=== PATIENT | female | born 1960 | race Caucasian/White ===

== ENCOUNTER 2024-09-09 09:46 | Outpatient (AMB) | payer OTHER, SELFPAY ==
--- NOTE | 2024-09-09 09:49 | MHC.PC.OV ---
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 Intake Note: New patient visit Early Intervention School Psychologist Required: No Allergies clarithromycin [From Biaxin] Allergy (Severe, Verified 09/09/24 09:54) Hives cat dander Allergy (Unknown, Verified 09/09/24 09:56) Unknown dog dander Allergy (Unknown, Verified 09/09/24 09:56) Unknown horse dander Allergy (Unknown, Verified 09/09/24 09:56) Unknown Medication List - Last Reconciled 09/09/24 by Eileen Lopes MD albuterol sulfate 90 mcg/actuation 2 puffs inhalation Q6H PRN fluticasone furoate-vilanterol (Breo Ellipta) inhalation hydrochlorothiazide 25 mg PO DAILY multivitamin 1 tab PO DAILY Tobacco use date assessed: 09/09/24 Dental Screening Dental Screen Date: 09/09/24 Did you have a dental visit in the last 12 months?: Yes Did you have a dental problem in the last 6 months where you did not have access to dental care?: No Was dental information given to patient?: Patient has dentist HPI HPI Comments History of Present Illness Details The patient is a 63 year old female with a past medical history of hypertension, asthma presenting to [facility]. Transfer [facility] CV: On hctz 25 daily. Denies chest pain, exertional dyspnea. Asthma: On Breo. Takes albuterol as needed Follows with ENT. History of torn carotid. Was following with Dr Alvarado. Had follow up MRArian Being referred to neurosurgery. Denies RUFF. MSK: History of calf pain, plantar fasciits. Sees podiatry Following on [facility] Follows with Dr Hawkins benefits consultant Mammo 2023. History of abnormal mammo with Colonoscopy 2022-5 year polyps. [facility] History of Shingles in June. Does plan on getting the vaccination ROS see HPI PHYSICAL EXAM: GENERAL: Alert and oriented x 3. NAD EYES: EOMI. Anicteric. HENT: Moist mucous membranes. No scleral icterus. No cervical lymphadenopathy. LUNGS: Clear to auscultation bilaterally. CARDIOVASCULAR: Regular rate and rhythm. No murmur. No JVD. ABDOMEN: Soft, non-tender +bs EXTREMITIES: No edema. Non-tender. SKIN: No rashes or lesions. Warm. NEUROLOGIC: No focal neurological deficits. CN II-XII grossly intact PSYCHIATRIC: Cooperative. Appropriate mood and affect [facility] Social History Housing: House Alcohol intake: current Patient Tobacco Use Status: Never used Tobacco e-Cigarette/Vaping Use: Never Used Second Hand Smoke Exposure: No service: No Current occupational status: employed Current occupation: med care manager Current occupational exposures/hazards: No Cognitive needs: No Hearing needs: No Vision needs: No Questionnaire AUDIT C Alcohol Use Questionnaire (AUDIT-C) 1. How often do you have a drink containing alcohol?: Monthly or less 2. How many drinks containing alcohol do you have on a typical day when you are drinking?: 1 or 2 3. How often do you have six or more drinks on one occasion?: Never Total Score: 1 Physical exam (Primary Care) Vital Signs: Last Vital Signs Temp 98.6 F 09/09/24 09:59 Pulse 83 09/09/24 09:59 Resp 14 09/09/24 09:59 BP 136/76 09/09/24 09:59 Pulse Ox 94 09/09/24 09:59 Oxygen Delivery Method Room Air 09/09/24 09:59 BMI result Body Mass Index 36.6 Tobacco/Smoking Status: Tobacco use Status Tobacco use date assessed 09/09/24 09/09/24 10:04 Patient Tobacco Use Status Never used Tobacco 09/09/24 10:04 e-Cigarette/Vaping Use Never Used 09/09/24 10:04 Coding Level of Care Code New Pt Level 4 (36577) Diagnoses Encounter to establish care Z76.89 Primary hypertension I10 Hypertension type: primary hypertension Moderate persistent asthma, unspecified whether complicated J45.40 Asthma severity: moderate Asthma persistence: persistent Asthma complication type: unspecified Screening for skin cancer Z12.83 Assessment & Plan Assessment & Plan (1) Encounter to establish care: Code(s): Z76.89 - Persons encountering health services in other specified circumstances Category: Medical (2) Hypertension: Code(s): I10 - Essential (primary) hypertension Category: Medical Qualifiers: Hypertension type: primary hypertension Qualified Code(s): I10 - Essential (primary) hypertension (3) Asthma: Code(s): J45.909 - Unspecified asthma, uncomplicated Category: Medical Qualifiers: Asthma severity: moderate Asthma persistence: persistent Asthma complication type: unspecified Qualified Code(s): J45.40 - Moderate persistent asthma, uncomplicated (4) Screening for skin cancer: Code(s): Z12.83 - Encounter for screening for malignant neoplasm of skin Category: Medical Plan 63 year old to establish care Past medical, surgical, social family history reviewed Asthma is well controlled HTN-controlled on current medications. Labs next visit Orders: Referrals Dermatology Referral Z12.83 - Encounter for screening for malignant neoplasm of skin Medications: New hydrochlorothiazide 25 mg PO DAILY 90 tabs 3RF Breo Ellipta 200-25 mcg/dose (fluticasone furoate-vilanterol) 1 inh inhalation DAILY 3 ea 3RF NS I10 - Essential (primary) hypertension, J45.909 - Unspecified asthma, uncomplicated albuterol sulfate 90 mcg/actuation 2 puffs inhalation Q6H PRN 8.5 grams 3RF shortness of breath or wheezing Breo Ellipta 200-25 mcg/dose (fluticasone furoate-vilanterol) 1 inh inhalation DAILY 3 ea 3RF NS I10 - Essential (primary) hypertension, J45.909 - Unspecified asthma, uncomplicated albuterol sulfate 90 mcg/actuation 2 puffs inhalation Q6H PRN 8.5 grams 3RF shortness of breath or wheezing hydrochlorothiazide 25 mg PO DAILY 90 tabs 3RF hydrochlorothiazide 25 mg PO DAILY 30 tabs 0RF albuterol sulfate 90 mcg/actuation 2 puffs inhalation Q6H PRN 8.5 grams 0RF shortness of breath or wheezing
[2024-09-09 09:59] VITALS: BP 136/76; PULSE 83; RESP 14; TEMP 37; O2SAT 94; BMI 36.6
--- OUTSIDE RECORDS SUMMARY | 2024-09-09 11:11 | XMS_ITS ---
Author Organization [facility] Address [address] [address] Care Team Providers Care Chief Safety Officer Name Role Phone RichardsAshley coyle Unavailable [phone] REASON FOR VISIT RX NOT AT PHARMACY Medications Medication SIG (Take, Route, Frequency, Duration) Notes Start Date End Date Status Tylenol with Codeine #3 300-30 MG 1 tablet as needed Orally every 6 hrs PRN for 30 days 07/28/2024 Active Encounters Encounter Location Date Provider Diagnosis [facility] [address] [place], [place] [address] [address] [address] 07/29/2024 Ashley Richards Plan Of Treatment Medication Medication Name Sig Start Date Stop Date Notes Tylenol with Codeine #3 300- 30 MG 1 tablet as needed Orally every 6 hrs PRN for 30 days 07/28/2024 Next Appt Details Provider Name:Ashley coyle, 06/02/2025 08:40:00 AM, [address] [place], [place] [address] [facility], [facility] [address], [place], [address], Progress Notes * JAYLEN RICHARDSB: [birth year] (63 yo F)Acc No.[id number]:07/29/2024 Patient:?BRITTON RICHARDS :1960???Age:63 Y???Sex:Female Address:[address] [place] [address], [place], [address] * Refills? Refill Tylenol with Codeine #3 Tablet, 300-30 MG, Orally, 24, 1 tablet as needed, every 6 hrs PRN, 30 days, Refills=0 * true * Date:? Generated for Porfirio calle/Gigi/Duarte on:?09/09/2024 11:11 AM EDT
--- OUTSIDE RECORDS SUMMARY | 2024-09-09 11:11 | XMS_ITS ---
Author Organization [facility] Address [address] [facility] [address] [place] [address] Care Team Providers Care Filament Welder Name Role Phone RichardsAshley coyle Unavailable [phone] REASON FOR VISIT New Refill Request Encounters Encounter Location Date Provider Diagnosis [facility] [address] [place] [address] [address] [place] [address] 06/11/2024 Ashley Richards Plan Of Treatment Next Appt Details Provider Name:Ashley Spencer Richelletrisha anthonyanival, 06/02/2025 08:40:00 AM, [address] [facility], [address], [place], [address], Progress Notes * JACQUELINE RICHARDSADOB: [birth year] (63 yo F)Acc No.[id number]:06/11/2024 Patient:?BRITTON RICHARDS :1960???Age:63 Y???Sex:Female Address:[address] [place] [address], [address] * true * Date:? Generated for Printi ng/Fajosseling/eTransmitting on:?09/09/2024 11:11 AM EDT
--- OUTSIDE RECORDS SUMMARY | 2024-09-09 11:11 | XMS_ITS ---
Author Organization [facility] Address [address] [facility] [place] [address] Care Team Providers Care Restaurant Inspector Name Role Phone Quynh Weiner Unavailable [phone] Allergies Allergen (clinical drug ingredient) Drug/Non Drug Allergy documented on EMR Reaction Allergy Type Onset Date Status Biaxin nausea and vomiting Drug Allergy Active Results Component Value Reference Range Notes X ray : Foot, right 3V Reviewed date:07/18/2024 02:32:31 PM Interpretation:See Examination above Performing Lab: Notes/Report: See Examination above REASON FOR VISIT Foot pain Medications Medication SIG (Take, Route, Frequency, Duration) Notes Start Date End Date Status Feldene 20 MG 1 capsule with food Orally Once a day for 30 day(s) 12/30/2019 Not-Taking Ammonium Lactate 12 % 1 application Externally Twice a day for 30 days Active Vitamin D Active Zinc Active Vitamin B Complex Ac tive Vitamin B12 Active Vitamin B6 Active Vitamin C Active Mirena Not-Taking Flovent HFA Active Biofreeze 10 % as directed Externally 07/18/2024 Active ProAir HFA Active hydroCHLOROthiazide 25 MG 1 tablet in th e morning Orally Once a day for 30 day(s) Active Feldene 20 MG 1 capsule with food Orally Once a day for 30 day(s) 07/31/2013 Not-Taking Social History Tobacco use other than smoking: Question Answer Notes Are you an other tobacco user? No Problems Problem Type SNOMED Code ICD Code Onset Dates Problem Status W/U Status Risk Notes Problem Mononeuropathy of lower limb (713924256) Neuritis of right foot (G57.91) Active confirmed Problem 9243380423 Hallux valgus of right foot (M20.11) Active confirmed Vital Signs Height 5ft 5 in in 07/18/2024 Weight 215 lbs 07/18/2024 BMI 35.77 kg/m2 07/18/2024 Blood pressure systolic 152 mm Hg 07/18/19 25 Blood pressure diastolic 96 mm Hg 025 Heart Rate 82 /min 07/18/2024 Encounters Encounter Location Date Provider Diagnosis [facility] [address] [address] 07/18/2024 Quynh Weiner Pain in right foot M79.671 ; Neuritis of right foot G57.91 ; Hallux valgus of right foot M20.11 and Bunion, right M21.611 Assessments Encounter Date Diagnosis (ICD Code) Assessment Notes Treatment Notes Treatment Clinical Notes Section Notes 07/18/2024 Pain in right foot (ICD-10 - M79.671) 07/18/2024 Neuritis of right foot (ICD-10 - G57.91) 07/18/2024 Hallux valgus of right foot (ICD-10 - M20.11) 07/18/2024 Bunion, right (ICD-10 - M21.611) Plan Of Treatment Medication Medication Name Sig Start Date Stop Date Notes Biofreeze 10 % as directed Externally 07/18/2024 Next Appt Details Follow Up: prn, Reason: Progress Notes * Moiz RICHARDSaDOB: [birth year] (63 yo F)Acc No.[id number]:07/18/2024 Progress Note Patient:?Olamide RICHARDS Provider:?Quynh Weiner DPM :1960???Age:63 Y???Sex:Female D ate:07/18/2024 Address:[address], [facility] Subjective: * Chief Complaints: * ???Foot pain * HPI: ???Foot Pain:?Nature:?burning , tingling, numbness.?Location:?great toe right.?Duration:?, several months.?Onset:?unknown.?Course:?worse.?Aggravated:?Any pressure going from open toes to closed toed shoes, Worse at night when in bed.?Treatments:?rest/alter normal daily activity, change in shoes.? * ROS:?General/Constitutional:?Nausea?denies.?Vomiting?denies.?Hunger Thirst?denies.?Loss appetite?denies.?Chills?denies, denies.?Fatigue?denies,.?Fever?denies.?Night Sweats?denies.?Unexplained weight loss?denies.?Ophthalmologic:?Blurred vision?denies, denies.?Red eye?denies, denies.?HEENTM:?Dentures?denies.?Dizziness?denies.?Glasses/contacts?admits.?Retinopathy?de nies.?Blurred/double vision?denies.?TMJ?denies.?Discharge/drainage?denies.?Implants?denies, denies.?Hard of hearing ?denies.?Difficulty chewing/swallowing/speaking?denies.?Nose bleeds?denies, denies.?Sore mouth?denies, denies.?Swollen glands?denies, denies.?Respiratory:?On Oxygen?denies, denies.?Pneumonia/pleurisy?denies.?Bronchitis?denies.?Emphysema?denies, denies.?Coughing?denies, denies.?Cough blood?denies, denies.?Shortness of breath?admits.?Wheezing?admits.?Cardiovascular:?Pacemaker?denies.?MVP?denies, denies.?WPW?denies, denies.?CHF?denies.?Heart attack?denies, denies.?Septal defect?denies, denies.?Rapid beat?denies, denies.?Chest pain ?denies, denies.?Atrial Fib.?denies, denies.?Murmur/Palpitations?denies.?Gastrointestinal:?Hemorrhoids?denies.?Stomach/Abdominal pain?denies.?Dark blood stool?denies, denies.?Irritable bowel ?denies, denies.?Constipation?denies, denies.?Diarrhea?denies, denies.?Vomiting?denies, denies.?Hematology:?Swelling?admits.?Bruising?denies.?Bleeding problem?denies.?Genitourinary:?Blood urine?denies, denies.?Frequent/Painfu/urination/bladder control?denies, denies.?Kidney stones?denies, denies.?Infection (UTI)?denies, denies.?Nephropathy?denies, denies.?Musculoskeletal:?Hammertoes?denies.?Bunions?denies.?Scoliosis/kyphosis?denies.?Muscle cramps / walking?denies.?Generalized aches and pains?admits.?Weakness?denies.?Integ.:?Kumar?denies.?Scars?denies.?Corns/calluses?admits.?Ingrown nails?admits.?Painful nails?denies.?Rashes?denies.?Neurologic:?Difficulty sleeping?denies.?Bipolar?denies.?Brain disorder?denies.?Balance trouble?denies.?Confusion?denies.?Fainting/blackouts?denies.?Headache?denies.?Tr emors?denies.? * Medical History:? * Surgical History:?elbow surg [place] 2007oral surgery 05/2024 * Hospitalization/Major Diagno stic Procedure:?[facility] for a 3 day stay for torn carotid 2010 * Family History:?Mother: aliv e, diabetes, arthritis, high blood pressure.?Father: .?Spouse: alive.? * Social History:?Tobacco Use:?Tobacco Use/Smoking?Are you a:: nonsmoker , Additional Findings: Tobacco Non-User: Current non-smoker.?Tobacco use other than smoking?Are you an other tobacco user??No ???Drugs/Alcohol:?Drugs?Have you used drugs other than those for medical reasons in the past 12 months??No ?Alcohol Screen?Did you have a drink containing alcohol in the past year?: Yes, How often did you have a drink containing alcohol in the past year?: Monthly or less (1 point), Points: 1, Interpretation: Negative.?Miscellaneous:?Caffeine: yes, 2-3 cups per day. ?Children: yes, 2. ?Exercise: yes, Beatrice,walking, bike riding. ?Marital status: . 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 * Medications:?TakinghydroCHLO ROthiazide 25 MG Tablet 1 tablet in the morning Orally Once a day ProAir HFA Flovent HFA Vitamin C Vitamin B6 Vitamin B12 Vitamin B Complex Zinc Vitamin D Ammonium Lactate 12 % Cream 1 application Externally Twice a day Taking hydroCHLOROthiazide 25 MG Tablet 1 tablet in the morning Orally Once a day Taking ProAir HFA Taking Flovent HFA Taking Vitamin C Taking Vitamin B6 Taking Vitamin B12 Taking Vitamin B Complex Taking Zinc Taking Vitamin D Taking Ammonium Lactate 12 % Cream 1 application Externally Twice a day Not-Taking/PRNMirena Feldene 20 MG Capsule 1 capsule with food Orally Once a day Feldene 20 MG Capsule 1 capsule with food Orally Once a day Medication List reviewed and reconciled with the patientNot-Taking/PRN Mirena Not-Taking/PRN Feldene 20 MG Capsule 1 capsule with food Orally Once a day Not-Taking/PRN Feldene 20 MG Capsule 1 capsule with food Orally Once a day Medication List reviewed and reconciled with the patient * Allergies:?Biaxin: nausea an d vomiting - Allergyyes[Allergies Verified] Objective: * Vitals:?Ht:5ft 5 in, Wt:215, BMI:35.77, Shoe size:10W, BP:152/96mm Hg, HR:82/min, Ht-cm: 165.1 cm, Wt-k.52 kg. * Examination: ???General Examination: ?GENERAL APPEARANCE:?Reveals a pleasant, alert, well nourished, well- developed, well hydrated individual, who demonstrates proper attention to hygiene/body habitus, and is in no acute distress, Pt serves as own historian for office visit today.?ORIENTED:?person, place, and time.?Neurological: ?SENSORY:?Neurological exam demonstrates, reduced light touch sensation, reduced sharp/dull pin prick discrimination, reduced vibration sensation, 5.07 monofilament test performed at plantar aspects of 5 varied sites per foot shows sensation, reduced medial hallux right, Pt relates, numbness, burning, tingling, Right.?TINEL'S COMPRESSION:?Positive, Saphenous nerve distribution, Right.?Neuroma Pain: ?PALPATION:?No interspace pain noted on palpation.?Orthopedic: ?MUSCLE STRENGTH:?5/5 all groups in a symmetrical fashion, B/L.?BUNION:?Medially prominent 1st MPJ, RIGHT, inflammation present, Lateral tracking 1st MPJ incompletely reducible.?DIGITAL DEFORMITIES:?Digital contracture, PIPJ, 2-5 B/L, incompl-reducible with WB, or to push-up test, no over, nor underlapping.?FOOTWEAR:?shoe gear properties exacerbate patients foot/toe deformity.?X-Rays - IMAGING REPORT: ?Clinical Indication(s):?Evaluate Biomechanical Deformity , Evaluate for Fracture.?Views:?3 views of Foot , AP , LAT , MO , RIGHT??Taken by trained?Podiatric Crew Chief (?SP ).?Findings:?normal bone and soft tissue density consistent for patients age and sex , dorsal degenerative changes of the tarsal joints.?HAV:?increased First Intermetatarsal angle and Hallux Abductus angle consistent with Bunion deformity noted, hypertrophy of the dorsal and medial 1st MTH WITH subchondral cyst(s), fibular sesamoid located in the IS, positive sesamoid hypertrophy.?Fracture:?Negative fractures identified.? * Physical Examination:?L2999 Supplies:?Insoles-pedag?#40.? Assessment: * Assessment: 1.?Pain in right foot - M79. 671???2.?Neuritis of right foot - G57.91 (Primary)???Specify :Acute problem, Complicated w/ Multiple Tx Options(4),Dx New problem, Prognosis Uncertain (4)???3.?Hallux valgus of right foot - M20.11???4.?Bunion, right - M21.611??? Plan: * Treatment: 2.?Hallux valgus of right fo ot? Start Biofreeze Cream, 10 %, as directed, Externally.?? * Procedure Codes:?68405 X-RAY EXAM OF RIGHT FOOT 3V, Modifiers: 26 , RT * Preventive Medicine:? ??Counseling:?Discussion:?-14: Office or other outpatient visit for the evaluation and management of an established patient, which required a medically appropriate history and/or examination and MODERATE level of DECISION MAKING for: 1 OR MORE CHRONIC PROBLEM(S) THATS WORSENING, 2 STABLE CHRONIC PROBLEMS, A NEWLY DIAGNOSED PROBLEM WITH UNCERTAIN PROGNOSIS, AN ACUTE COMPLICATED INJURY WITH MULTIPLE TREATMENT OPTIONS, OR AN ACUTE PROBLEM WITH ACCOMPANYING SYSTEMIC SYMPTOMS, THAT POSE(S) A MODERATE RISK OF MORBIDITY. THIS CONDITION MAY ALSO INCLUDE RX DRUG MANAGEMENT, OR A DECISON FOR MINOR SURGERY. The visit on the day of the encounter encompassed interpreting the data and educating the patient as to the nature of their condition, treatment options available according to their individual PMH, meds, allergies, and overall health/living conditions, as well as any potential risks or complications that may occur from a failure to adhere to, and participate in, the recommended course of therapy. The discussion included a complete verbal, and/or written explanation of the examination results, any x-rays taken, the proposed diagnosis, and outline of the treatment plan. A schedule for future care needs was also explained. The patient verbalized an understanding of the instructions at this time and agreed to be an active participant in their treatment. If the patient should think of any questions or concerns after the visit, I have encouraged the patient to call the office.?BioMech.:?I discussed the Pts foot biomechanics with them and how it relates to their problem, Pt is fitted for an OC orthotic to help address their issues., Discussed and reviewed the X-rays with the patient. We discussed how the findings relate to the patients symptoms/complaints. Answered any and all questions., Recommended Topical analgesics including biofreeze/aspercream/Voltaren gel.?Discussion for Bunion sx:?Several different types of Bunion surgeries were discussed with the patient, including, but not limited to: Modified Weinstein bone removal and soft tissue release/realignment, James osteotomy with soft tissue release/realignment and internal fixation, Shaft v Base wedge osteotomies with internal fixation, and Lapidus joint fusion procedures with internal fixation. We discussed the risks of having surgery (described below) vs not having surgery (persistent pain, deformity, risk for skin ulceration/infection, loss of toe) as well as the potential surgical complications including, but not limited to: pain, swelling, bleeding, scarring, numbness, infection, delayed/non healing, floppy/unstable/shorthened toe, recurrence, failure of the procedure, overcorrection leading to plantarflexed/downward/upward positioned toe, recurrence, need for further surgery, as well as the possibility for loss of the toe itself. We discussed the use of IV/Local regional anesthesia, and the usual post-op course for healing. No guarentees were given. The patient verbally indicated a full understanding of the above conversation, and any other of their questions were answered to their satisfaction, Recomm, rest, ice, proper shoegear, padding, orthotics, anti-inflammatories or tylenol as tolerated, topical analgesics, cortisone injections, Discussed and reviewed the X-rays with the patient. We discussed how the findings relate to the patients symptoms/complaints. Answered any and all questions..?Neuritis/Neuropathy:?The patient was counseled on the diagnosis, possible etiologies (including mechanical stress, injury, entrapment, chemotherapy, diabetes, vertebral disk herniation if hx), treatment options, and importance for adherence to recommendations in order to address the patients Neuritis/Neuropathy. The advantages and disadvantages re: Accomidative mechanical support/offloading, Topical vs PO analgesics including aspercream/Voltaren gel/Lidoderm patches/Neurontin/Lyrica along with their potential side effects were discussed with the patient to their satisfaction. Also discussed the use of therapeutic injectable cortisone if needed. Surgical treatment, if considered an option, was discussed as well. If surgery is warranted, we discussed the potential successful outcomes as well as the possible complications such as failure, painful scar, permanent tingling/numbness/neuralgea/or intractable pain. Patient questions re: medication use, dosage, and possible side effects and drug interactions were reviewed and the answers to each understood. If the condition worsens, the patient was instructed to contact the office for an appointment. The patient verbally confirmed a full understanding of the above, Recommended Topical analgesics including aspercream/Voltaren gel/Lidoderm patches.? * Follow Up:?prn * Images: * Sign off status: Completed true * Provider:?Quynh Weiner DPM Date:?2024 Generated for Porfirio calle/Gigi/Reneitting on:?09/09/2024 11:11 AM EDT History and Physical Notes * HPI (History of Present Illness) Category Sub-Category Detail Notes Category Not es Foot Pain Nature: burning , tingling, numbness Location: great toe right Duration: , several months Onset: unknown Course: worse Aggravated: Any pressure going f rom open toes to closed toed shoes, Worse at night when in bed Treatments: rest/alter normal da val activity, change in shoes Physical Examination Category Sub-Category Detail Notes Section Note s L2999 Supplies Insoles-pedag #40 Examination Category Sub-Category Detail Notes Category Not es Neuroma Pain PALPATION: No interspace pain noted on palpation Neurological SENSORY: Neurological exa m demonstrates, reduced light touch sensation, reduced sharp/dull pin prick discrimination, reduced vibration sensation, 5.07 monofilament test performed at plantar aspects of 5 varied sites per foot shows sensation, reduced medial hallux right, Pt relates, numbness, burning, tingling, Right TINEL'S COMPRESSION: Positive, Saphenous nerve distribution, Right Orthopedic BUNION: Medially promine nt 1st MPJ, RIGHT, inflammation present, Lateral tracking 1st MPJ incompletely reducible FOOTWEAR EVALUATION: shoe gear propertie s exacerbate patients foot/toe deformity DIGITAL DEFORMITIES: Digital contracture , PIPJ, 2-5 B/L, incompl-reducible with WB, or to push-up test, no over, nor underlapping MUSCLE STRENGTH: 5/5 all groups in a symmetrical fashion, B/L General Examination GENERAL APPEARANCE: Reveals a pleasant, alert, well nourished, well-developed, well hydrated individual, who demonstrates proper attention to hygiene/body habitus, and is in no acute distress, Pt serves as own historian for office visit today ORIENTED: person, place, and t yolis X-Rays - IMAGING REPORT Findings: normal b one and soft tissue density consistent for patients age and sex , dorsal degenerative changes of the tarsal joints Fracture: Negative fractures i dentified HAV: increased First Inte rmetatarsal angle and Hallux Abductus angle consistent with Bunion deformity noted, hypertrophy of the dorsal and medial 1st MTH WITH subchondral cyst(s), fibular sesamoid located in the IS, positive sesamoid hypertrophy Views: 3 views of Foot , AP , LAT , MO , RIGHT Taken by trained Podiatric Crew Chief ( SP ) Clinical Indication(s): Evaluate Biomech anical Deformity , Evaluate for Fracture
--- OUTSIDE RECORDS SUMMARY | 2024-09-09 11:11 | XMS_ITS | Patient Health Record ---
Author Organization [facility] Address [address] [place] [address] Care Team Providers Care Decontaminator Name Role Phone Quynh Weiner Unavailable [phone] Allergies Allergen (clinical drug ingredient) Drug/Non Drug Allergy documented on EMR Reaction Allergy Type Onset Date Status Biaxin nausea and vomiting Drug Allergy Active Results Component Value Reference Range Notes X ray : Foot, right 3V Reviewed date:07/18/2024 02:32:31 PM Interpretation:See Examination above Performing Lab: Notes/Report: See Examination above Reason For Referral No Information Medications Medication SIG (Take, Route, Frequency, Duration) Notes Start Date End Date Status Biofreeze 10 % as directed Externally 07/18/2024 [...] C Active Mirena Not-Taking Flovent HFA Active Feldene 20 MG 1 capsule with food Orally Once a day for 30 day(s) 07/31/2013 Not-Taking Social History Tobacco use other than smoking: Question Answer Notes Are you an other tobacco user? No Problems Problem Type SNOMED Code ICD Code Onset Dates Problem Status W/U Status Risk Notes Problem [id number] Hallux valgus of right foot (M20.11) Active confirmed Problem Mononeuropathy of lower limb (900043314) Neuritis of right foot (G57.91) Active confirmed Vital Signs Heart Rate 82 /min 07/18/2024 Blood pressure diastolic 96 mm Hg 07/18/2024 Height 5ft 5 in in 07/18/2024 Blood pressure systolic 152 mm Hg 07/18/2024 Weight 215 lbs 07/18/2024 BMI 35.77 kg/m2 07/18/2024 [facility]counters [facility] [address] [facility] Quynh Black Pain in right foot M79.671 ; Neuritis of right foot G57.91 ; Hallux valgus of right foot M20.11 and Bunion, right M21.[address] [address] 07/18/2024 Quynh Black [address] [address] 07/18/2024 Quynh Black Assessments Encounter Date Diagnosis (ICD Code) Assessment Notes Treatment Notes Treatment Clinical Notes Section Notes 07/18/2024 Pain in right foot (ICD-10 - M79.671) 07/18/2024 Neuritis of right foot (ICD-10 - G57.91) 07/18/2024 Hallux valgus of right foot (ICD-10 - M20.11) 07/18/2024 Bunion, right (ICD-10 - M21.611) Plan Of Treatment Pending Test Test Name Order Date X ray : Foot, right 3V 07/31/2013 01000,[id number] TENDON SHEATH/LIGAMENT 1 [id number] TENDON SHEATH/LIGAMENT 0 06/30/2020 83226,[id number] TENDON SHEATH/LIGAMENT 0 11/14/2022 Insurance Providers Payer Name Payer Address Payer Phone Subscriber Number Group Number Insured Name Patient Relationship to Insured Coverage Start Date Coverage End Date Lesly Arriaza [id number] NOAH Aquino [phone] [id number] Olamide Jeffrey Self - patient is the insured Medical (General) History Medical History History ICD Code asthma Broken bones High blood pressure Sciatica Chicken pox Joint implants/screws Zuni palsy Surgical History Surgery Date(Month/Year) elbow surgery 2006 oral surgery 05/2024 Hospitalization History Reason Date(Month/Year) [facility] for a 3 day stay for torn carotid 20 11
--- OUTSIDE RECORDS SUMMARY | 2024-09-09 11:12 | XMS_ITS | Data Portability ---
Author Organization [facility], Allergy Address [address] [facility] [address] [place] [address] Assessment Encounter Date Assessment Date Assessment LastModified by Organization Details LastModified Time 07/14/2024 07/14/2024 63 year old female initially seen by Dr. Alvarado in January 2023 for loss of taste and smell associated with long Covid. CT sinus was ordered which was negative for significant sinus disease. There was enlargement of sella turcica and possibility of pituitary micro or macroadenoma. As a result Dr. 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 Additionally there was possibly an associated arachnoid cyst. MRI also showed a 0.5 cm dural based enhancing nodule likely reflecting small meningioma. I have issued her a referral to neurosurgery. [email or web address] Not available 07/14/2024 10:28:21 Plan of Treatment Reminders Order Date Submit Date Provider Last Modified By Organization Details Last Modified Time Details Appointments None recorded. Lab None recorded. Referral neurologic al surgeon referral - partially empty sella on MRI brain 04/17/232024 025 [facility] Neurosurgery [facility], [address] [place] [address] [place], [address], 14:05:52 Procedures None recorded. Surgeries None recorded. Imaging None recorded. Medication Orders None recorded. Patient TargetsNo targets recorded. Patient InstructionsNo instructions recorded. 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 Medical Equipment None Reported. Allergies Allergen ID Allergen Name Allergen Category Reaction Reaction Severity Criticality Documentation Date Start Date Code Code System Note Provider Name and Address Organization Details Recorded Time 18642 Biaxin medicatio n itching Not available Not available 10/09/202368990 9 RxNorm React ion: Itch; Not Available [facility] 4 00:58:39 Medications Name Sig Start Date Stop Date Status Note LastModified by Organization Details LastModified Time doxycyclin e hyclate 100 mg capsule TAKE 1 CAPSULE BY MOUTH DAILY UNTIL ALL TAKEN active Not Available Not Available No t Available Multiple Vitamins tablet active Medication ID: [id number] Osbaldo nd Name: Multiple Vitamins S end Method: E-Prescrib ed Subs Allowed: subs OK Medicat ionGeneric Name: Multiple Vitamins Not Available Not Available Not Available hydrochlor othiazide 25 mg tablet active Medication ID: [id number] Osbaldo nd Name: hydrochlor othiazide Send Method: E-Prescrib ed Subs Allowed: subs OK Medicat ionGeneric Name: hydrochlor othiazide Not Available Not Available Not Available ibuprofen 600 mg tablet TAKE 1 TABLET BY MOUTH EVERY 6 HOURS NEEDED FOR PAIN active Not Available Not Available No t Available albuterol active Medication ID: [id number] Osbaldo nd Name: Albuterol Send Method: E-Prescrib ed Subs Allowed: subs OK Medicat ionGeneric Name: Albuterol Not Available Not Available Not Available Breo Ellipta active Medication ID: [id number] Osbaldo nd Name: Breo Ellipta Se nd Method: E-Prescrib ed Subs Allowed: subs OK Medicat ionGeneric Name: Breo Ellipta Not Available Not Available Not Available Vitals Date Recorded Body weight Body mass index (BMI) Body height Provider Name and Address Organization Details Last Updated DateTime 07/14/2024 73058.36 g 35.8 kg/m2 165.1 cm Genoveva Negrete [place] - [facility] 07/14/2024 10:12:23 Social History None recorded. Functional Status None recorded. Mental Status None recorded. Family History Nothing Reported. Medical History No medical history recorded. Gynecological HistoryNo gynecological history recorded. 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 03665006 D44.3 Loss of se nse of smell 37991443 R43.0 Health Concerns Section Related Observation LastModified by Organization Detai ls LastModified Time None Recorded Concern Status LastModified by Organization Details LastModified Time None Recorded Advance Directives Directive None Recorded Payers Encounter Date Sequence Insurance Name Policy Number Policy Marie Covered Member ID Marie Member ID Guarantor Name 07/14/2024 1 [facility] [id number] Olamide Hawkins [id number] Olamide Hawkins Notes Date Note Type Note Provider Name and Address Organization Details Recorded Time 07/14/2024 text/html 63 year old fema le patient of Dr. Alvarado seen back in January 2023 for loss of taste and smell associated with long Covid. CT sinus was ordered which was negative for significant sinus disease. There was enlargement of sella turcica and possibility of pituitary micro or macroadenoma. As a result Dr. 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 Additionally there was possibly an associated arachnoid cyst. MRI also showed a 0.5 cm dural based enhancing nodule likely reflecting small meningioma. Patient was issued referral to neurology but never received an appointment. She follows up today requesting new referral. She currently does not have a PCP. Reviewed that these findings are likely unrelated to her loss of sense and smell from Covid. JACE FRAGOSO MD [address] [place] [address], [id number], [facility] - [facility] 07/14/2024 12:33:30 OBGyn Episode No OBEpisode recorded.
--- OUTSIDE RECORDS SUMMARY | 2024-09-09 11:12 | XMS_ITS ---
Author Organization [facility] Address [address] [place] [address] Care Team Providers Care Roll Mechanic Name Role Phone Husam Quynhanne Yun [phone] REASON FOR VISIT buy pedag size 40 Encounters Encounter Location Date Provider Diagnosis [address] [address] 07/18/2024 Quynh Weiner Plan Of Treatment No Information Progress Notes * Yesenia RICHARDSB: 962 (63 yo F)Acc No.[id number]:07/18/2024 Patient:?RICHARDS Olamide :1960???Age:63 Y???Sex:Female Address:[address], [place], [address] * true * Date:? Generated for Printi ng/Fajosseling/eTransmitting on:?09/09/2024 11:12 AM EDT
--- OUTSIDE RECORDS SUMMARY | 2024-09-09 11:12 | XMS_ITS | Patient Health Record ---
Author Organization [facility] Address [address] [place] [address] Care Team Providers Care Scrap Drop Crane Operator Name Role Phone Ashley Richards Unavailable [phone] Allergies Allergen (clinical drug ingredient) Drug/Non Drug Allergy documented on EMR Reaction Allergy Type Onset Date Status BIAXIN Unknown Drug Allergy Active Results Component Value Reference Range Notes Urinalysis Reviewed date:05/27/2024 11:03:27 AM Interpretation: Performing Lab: Notes/Report: PH 5.0 PROTEIN tr GLUCOSE neg BLOOD large Reason For Referral No Information Medications Medication SIG (Take, Route, Frequency, Duration) Notes Start Date End Date Status Mirena (52 MG) inserted 11/2017 Active hydroCHLOROthiazide 25 MG 1 tablet Orall y Twice a day Active Breo Ellipta 100-25 MCG/INH 1 puff Inhalation Once a day Active Multi-Vitamin Daily - 1 tablet Orally Once a day Active Biotin 1000 MCG 1 tablet Orally Once a day Active Zinc 100 MG 1 tablet Orally Once a day Active Vitamin B12 100 MCG Orally Active ProAir HFA 108 (90 Base) MCG/ACT 2 puffs as needed Inhalation Active Glucosamine 500 MG 1 capsule with a meal Orally Once a day Active Tylenol with Codeine #3 300-30 MG 1 tablet as needed Orally every 6 hrs PRN for 30 days 07/28/2024 Active Social History Tobacco Use: Social History Observation Description Date Details (start date - stop date) Never Smoker NA - NA Tobacco Use/Smoking Question Answer Notes Are you a nonsmoker Alcohol Screen (Audit-C) Question Answer Notes Did you have a drink contain ing alcohol in the past year? Yes How often did you have a dri nk containing alcohol in the past year? Monthly or less (1 point) How many drinks did you have on a typical day when you were drinking in the past year? 1 or 2 drinks (0 point) Points 1 Interpretation Negative Problems Problem Type SNOMED Code ICD Code Onset Dates Problem Status W/U Status Risk Notes Problem Excessive and frequent menstruation (618187224) Excessive and frequent menstruation with regular cycle (N92.0) Active confirmed Problem Menopause (009538668) Menopausal and female climacteric states (N95.1) Active confirmed Problem Surveillance of intrauterine device contraception (118972356) Encounter for routine checking of intrauterine contraceptive device (Z30.431) Active confirmed Problem Diverticulitis of colon (319577907) Diverticulitis of intestine, part unspecified, without perforation or abscess without bleeding (K57.92) Active confirmed Problem Irregular Menstruation (88550193) Other specified irregular menstruation (N92.5) Active confirmed Problem Fatigue (68893524) Other fatigue (R53.83) Active confirmed Problem Menopause (370332059) Menopausal and female climacteric states (N95.1) Active confirmed Problem Abnormal vaginal bleeding (136703754) Other disorder of menstruation and other abnormal bleeding from female genital tract (626.8) Active confirmed Major Vital Signs Temperature 98.2 degrees Fahrenheit 05/27/2024 Blood pressure diastolic 84 mm Hg 05/27/2024 Height 65.75 in 05/27/2024 Blood pressure systolic 128 mm Hg 05/27/2024 Weight 217 lbs 05/27/2024 BMI 35.29 kg/m2 05/27/2024 Encounters Encounter Location Date Provider Diagnosis [facility] [address] [place] [address] 12/04/2023 Ashley Richards Other signs and symptoms in breast N64.59 and Family history of malignant neoplasm of breast Z80.3 [facility] [address] [address] [facility] [address] [place] [address] 05/27/2024 Ashley Richards Encounter for gynecological examination (general) (routine) without abnormal findings Z01.419 ; Encounter for screening mammogram for malignant neoplasm of breast Z12.31 and Encounter for removal of intrauterine contraceptive device Z30.432 [facility] [place] [address] [place] [address] 05/30/2024 Ashley Richards [facility] [address] [place] [address] 07/24/2024 Ashley Richards [facility] [address] [place] [address] 07/29/2024 Ashley Richards [facility] [address] [place] [address] 06/11/2024 Ashley Richards Assessments Encounter Date Diagnosis (ICD Code) Assessment Notes Treatment Notes Treatment Clinical Notes Section Notes 12/04/2023 Other signs and symptoms in breast (ICD-10 - N64.59) DISCUSSED FINDINGS AND NEED FOR FURTHER EVALUATION. ORDERED DIAGNOSTIC MAMMOGRAM AND RIGHT BREAST ULTRASOUND. WILL CALL HER WITH RESULTS. 05/27/2024 Encounter for gynecological examination (general) (routine) without abnormal findings (ICD-10 - Z01.419) NO PAP TEST, DUE IN 2024. 05/27/2024 Encounter for screening mammogram for malignant neoplasm of breast (ICD-10 - Z12.31) REGULAR MAMMOGRAMS AND SBE'S WERE RECOMMENDED. 12/04/2023 Family history of malignant neoplasm of breast (ICD-10 - Z80.3) DISCUSSED HER FAMILY HX OF BREAST CA AND INCREASED RISK OF BREAST CA. QUESTIONNAIRE TO ASSESS BREAST CA RISK WAS GIVEN. IF 20% OR MORE, MAY NEED ANOTHER MMODALITY LIKE BREAST US OR MRI TO ASSESS BREASTS. 05/27/2024 Encounter for removal of intrauterine contraceptive device (ICD-10 - Z30.432) DISCUSSED MIRENA IUD AND POSTMENOPAUSE. PAT DECIDED TO HAVE IUD REMOVED. IT IS EXPIRING IN A YEAR. Plan Of Treatment Pending Test Test Name Order Date MAMMOGRAM, SCREENING 04/14/2015 MAMMOGRAM, SCREENING 05/23/2022 MAMMOGRAM, SCREENING 05/23/2023 MAMMOGRAM, SCREENING 05/27/2024 Urinalysis 05/17/2020 Urinalysis 05/18/2021 25OH VITAMIN D 05/12/2019 25OH VITAMIN D 05/23/2023 COMPLETE BLOOD COUNT 05/23/2023 COMPLETE URINALYSIS 05/18/2021 COMPLETE URINALYSIS 10/01/2017 COMPLETE URINALYSIS 04/14/2015 COMPLETE URINALYSIS 04/14/2016 COMPLETE URINALYSIS 05/12/2019 COMPLETE URINALYSIS 05/17/2020 COMPREHENSIVE METABOLIC PANEL 05/23/2023 ESTRADIOL 03/08/2021 ESTRADIOL 05/12/2019 FSH 05/12/2019 HEMOGLOBIN A1C 05/23/2023 LH 05/12/2019 LIPID PANEL-B 05/23/2023 TSH 05/23/2023 URINE CULTURE 10/01/2017 URINE CULTURE 05/12/2019 URINE CULTURE 04/14/2016 URINE CULTURE 05/17/2020 URINE CULTURE 05/18/2021 MM Digital Mammo Screening 05/23/2022 MM Digital Mammo Screening 05/18/2021 MM Digital Mammo Screening 05/12/2019 MM Digital Mammo Screening 05/17/2020 MM Digital Mammo Screening 05/27/2024 MM Digital Mammo Screening 05/23/2023 Right Breast Ultrasound 12/04/2023 MM Digital Diagnostic Mammogram, Right 0 12/04/2023 Next Appt Details Provider Name:Ashley coyle, 06/02/2025 08:40:00 AM, [address] [facility], [address], [place], [address], Insurance Providers Payer Name Payer Address Payer Phone Subscriber Number Group Number Insured Name Patient Relationship to Insured Coverage Start Date Coverage End Date [facility] [address] [place] [address] [id number] JESISHAWNAMASONTabatha BRITTON Garcia Self - patient is the insured Medical (General) History Medical History History ICD Code Other specified abnormal uterine and vag inal bleeding N93.8 Polyp of cervix uteri N84.1 Other asthma J45.998 Carotid Artery Hematuria, unspecified R31.9 Excessive and frequent menstruation with regular cycle N92.0 Other specified irregular menstruation N 92.5 Other benign neoplasm of skin of scalp a nd neck D23.4 Leiomyoma of uterus, unspecified D25.9 Menopausal and female climacteric states N95.1 Diverticulitis of intestine, part unspecified, without perforation or abscess without bleeding K57.92 Deviated nasal septum J34.2 Other fatigue R53.83 Surgical History Surgery Date(Month/Year) x 2 Disection of Carotid Artery Fractured Left Elbow Repair Oral Surgery 2018 Hospitalization History Reason Date(Month/Year) See Surgical Hx
--- OUTSIDE RECORDS SUMMARY | 2024-09-09 11:12 | XMS_ITS ---
Author Organization [facility] Address [address] [address] Care Team Providers Care Ob Gyn Name Role Phone Ashlye Richards Unavailable [phone] REASON FOR VISIT COUPLE OF QUICK QUESTIONS Medications Medication SIG (Take, Route, Frequency, Duration) Notes Start Date End Date Status Tylenol with Codeine #3 300-30 MG 1 tablet as needed Orally every 6 hrs PRN for 30 days 07/28/2024 Active Encounters Encounter Location Date Provider Diagnosis [facility] [address] [address] 07/24/2024 Ashley Richards Plan Of Treatment Medication Medication Name Sig Start Date Stop Date Notes Tylenol with Codeine #3 300- 30 MG 1 tablet as needed Orally every 6 hrs PRN for 30 days 07/28/2024 Next Appt Details Provider Name:Ashley coyle, 06/02/2025 08:40:00 [facility] [place] [address], [place], [address], Progress Notes * JAYLEN RICHARDSB: 9[birth year] (63 yo F)Acc No.[id number]:07/24/2024 Patient:?BRITTON RICHARDS :1960???Age:63 Y???Sex:Female Address:[address] [place] [address], [place], [address] * Refills? Start Tylenol with Codeine #3 Tablet, 300-30 MG, Orally, 24, 1 tablet as needed, every 6 hrs PRN, 30 days, Refills=0 * true * Date:? Generated for Porfirio calle/Gigi/Duarte on:?09/09/2024 11:12 AM EDT
--- OUTSIDE RECORDS SUMMARY | 2024-09-09 11:12 | XMS_ITS ---
Author Organization [facility] Address [address] [place] [address] Care Team Providers Care Dairy Inspector Name Role Phone Alexandria Weineranne Yun [phone] REASON FOR VISIT buy nail greenlandic light pink Encounters Encounter Location Date Provider Diagnosis [address] [address] 07/18/2024 Quynh Weiner Plan Of Treatment No Information Progress Notes * Yesenia RICHARDSB: 962 (63 yo F)Acc No.[id number]:07/18/2024 Patient:?RICHARDS Olamide :1960???Age:63 Y???Sex:Female Address:[address], [place], [address] * true * Date:? Generated for Printi ng/Fajosseling/eTransmitting on:?09/09/2024 11:11 AM EDT
== END 2024-09-09 10:26 | disposition home or self-care (01) ==
LOC: HO.HMCFM 09:47
PROVIDERS: PCP Internal Medicine; Visit Provider Internal Medicine
DX: Z76.89 Persons encountering health services in other specified circumstances (principal); I10 Essential (primary) hypertension; J45.40 Moderate persistent asthma, uncomplicated; Z12.83 Encounter for screening for malignant neoplasm of skin

== ENCOUNTER 2024-11-17 14:43 | Outpatient (AMB) | payer OTHER, SELFPAY ==
--- NOTE | 2024-11-17 15:04 | MHC.PC.OV ---
Vital Signs 11/17/24 15:11 Weight 222 lb 6 oz BP 128/82 Blood Pressure Location Lt brachial Position Sitting Respiration 16 Pulse 79 Pulse Source Pulse Oximeter Temp 98.4 F Temp Source Oral Pulse Oximetry (%) 97 Oxygen Delivery Method Room Air Intake Visit Reasons: pneumonia / spot on L lung Intake Note: Pneumonian 10/13/2024. Still having shortness of breath and tightness. Using inhaler more frequently then before. Set Up Operator Tool Required: No Allergies clarithromycin (From Biaxin) Allergy (Severe, Verified 11/17/24 15:05) Hives cat dander Allergy (Unknown, Verified 11/17/24 15:05) Unknown dog dander Allergy (Unknown, Verified 11/17/24 15:05) Unknown horse dander Allergy (Unknown, Verified 11/17/24 15:05) Unknown Tobacco use date assessed: 11/17/24 Dental Screening Dental Screen Date: 09/09/24 HPI HPI Comments History of Present Illness Details The patient is a 64 year old female with a past medical history of hypertension, asthma presenting for follow up Recent urgent care for cough. Had CXR, read by clinician with concern for LLL infiltrate. Radiologist overread, no pneumonia. 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 Patient received and completed a course of doxycycline. She continues to feel shortness of breath and have intermittent wheezing. CV: On hctz 25 daily. Denies chest pain, exertional dyspnea. Asthma: On Breo. Takes albuterol as needed Follows with ENT. History of torn carotid. Was following with Dr Alvarado. Had follow up MR. Being referred to neurosurgery. Denies RUFF. MSK: History of calf pain, plantar fasciits. Sees podiatry Following on [facility] Follows with Dr Hawkins deposition operator Mammo 2023. History of abnormal mammo with Colonoscopy 2022-5 year polyps. [facility] History of Shingles in June. Does plan on getting the vaccination ROS see HPI PHYSICAL EXAM: GENERAL: Alert and oriented x 3. NAD EYES: EOMI. Anicteric. HENT: Moist mucous membranes. No scleral icterus. No cervical lymphadenopathy. LUNGS: Poor air entry b/l. right posterior rhonci CARDIOVASCULAR: Regular rate and rhythm. No murmur. No JVD. ABDOMEN: Soft, non-tender +bs EXTREMITIES: No edema. Non-tender. SKIN: No rashes or lesions. Warm. NEUROLOGIC: No focal neurological deficits. CN II-XII grossly intact PSYCHIATRIC: Cooperative. Appropriate mood and affect [facility] Social History Housing: House Alcohol intake: current Patient Tobacco Use Status: Never used Tobacco e-Cigarette/Vaping Use: Never Used Second Hand Smoke Exposure: No Use of substances other than those prescribed or required for medical reasons: No service: No Current occupational status: employed Current occupation: accounting manager assistant controller Current occupational exposures/hazards: No Cognitive needs: No Hearing needs: No Vision needs: No Questionnaire Thrive Questionnaire Date Thrive assessed: 09/09/24 I am a: Patient What is your living situation today?: I have a steady place to live Within the past 12 months, did the food you bought not last and you didn't have the money to get more?: Never true Within the past 12 months, did you worry whether your food would run out before you got money to buy more?: Never true Do you have trouble paying for medicines?: I choose not to answer this question Do you have trouble getting transportation to medical appointments?: No Do you have trouble paying your heating and electricity bill?: I choose not to answer this question Do you have trouble taking care of your child, family member or friend?: I choose not to answer this question Do you have trouble with day-to-day activities such as bathing, preparing meals, shopping, managing finances, etc.?: No Are you currently unemployed and looking for a job?: No Are you interested in more education?: No Please select the resources that you would like help with: None Currently or been in a relationship where the following occur: No concerns reported THRIVE Score: 0 AUDIT C Alcohol Use Questionnaire (AUDIT-C) 1. How often do you have a drink containing alcohol?: Never 3. How often do you have six or more drinks on one occasion?: Never Total Score: 0 ACT Questionnaire In the past 4 weeks, how much of the time did your asthma keep you from getting as much done at work, school or at home?: None of the time (while using inhaler ) During the past 4 weeks, how often have you had shortness of breath?: More than once a day (couple times a day) During the past 4 weeks, how often did your asthma symptoms wake you up at night or earlier than usual in the morning?: Not at all (takes more time getting asleep) During the past 4 weeks, how often have you had to use your rescue inhaler or nebulizer medication?: More than 3 times per day (2-3 times a day) How would you rate your asthma control during the past 4 weeks?: Poorly controlled ACT Interpretation: Positive Score: 14 Physical exam (Primary Care) Vital Signs: Last Vital Signs Temp 98.4 F 11/17/24 15:11 Pulse 79 11/17/24 15:11 Resp 16 11/17/24 15:11 BP 128/82 11/17/24 15:11 Pulse Ox 97 11/17/24 15:11 Oxygen Delivery Method Room Air 11/17/24 15:11 Tobacco/Smoking Status: Tobacco use Status Tobacco use date assessed 11/17/24 11/17/24 15:06 Patient Tobacco Use Status Never used Tobacco 11/17/24 15:21 e-Cigarette/Vaping Use Never Used 11/17/24 15:21 Thrive Assessment: Date of Thrive Assessment Date Thrive assessed 09/09/24 11/17/24 15:06 Currently or been in a relationship where the following occur: No concerns reported Coding Level of Care Code Est Pt Level 4 (51201) Complex EM visit Add On G2211 Diagnoses 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 Moderate persistent asthma, unspecified whether complicated J45.40 Asthma severity: moderate Asthma persistence: persistent Asthma complication type: unspecified Additional Codes Asthma Control Questionnaire - ACT Interpretation: Positive ([id number]) Assessment & Plan Assessment & Plan (1) Tortuous aorta: Code(s): 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 Prednisone and zpack sent Orders: Orders CA echo transthoracic complete 11/17/24 I77.1 - Stricture of artery Referrals Neurosurgery Referral R93.0 - Abnormal findings on diagnostic imaging of skull and head, not elsewhere classified Medications: New prednisone 40 mg (2 x 20 mg) PO DAILY 10 tabs 0RF azithromycin For 250 mg dose pack: take 500 mg today (day 1), then 250 mg for 4 days (days 2-5) PO 6 tabs 0RF
[2024-11-17 15:11] VITALS: BP 128/82; PULSE 79; RESP 16; TEMP 36.9; O2SAT 97
--- OUTSIDE RECORDS SUMMARY | 2024-11-17 16:15 | XMS_ITS | Patient Health Record ---
Author Organization [facility] Address [address] [place] [address] Care Team Providers Care Mediator Name Role Phone Quynh Weiner Unavailable [phone] Allergies Allergen (clinical drug ingredient) Drug/Non Drug [...] Problem Status W/U Status Risk Notes Problem [id number] Hallux valgus of right foot (M20.11) Active confirmed Problem Neuritis of right foot (G57.91) Active confirmed Vital Signs Heart Rate 82 /min 07/18/2024 Blood pressure diastolic 96 mm Hg 07/18/2024 Height 5ft 5 in in 07/18/2024 Blood pressure systolic 152 mm Hg 07/18/2024 Weight 215 lbs 07/18/2024 BMI 35.77 kg/m2 07/18/2024 Encounters Encounter Location Date Provider Diagnosis [address] [address] 07/18/2024 Quynh Black Pain in right foot M79.671 ; Neuritis of right foot G57.91 ; Hallux valgus of right foot M20.11 and Bunion, right M21.[address] [address] 07/18/2024 Quynh Black [address] [address] 07/18/2024 Quynh Black Assessments Encounter Date Diagnosis [...] X ray : Foot, right 3V 07/31/2013 [id number] TENDON SHEATH/LIGAMENT 1 [id number] TENDON SHEATH/LIGAMENT 0 06/30/2020 [id number] TENDON SHEATH/LIGAMENT 0 11/14/2022 Insurance Providers Payer Name Payer Address Payer Phone Subscriber Number Group Number Insured Name Patient Relationship to Insured Coverage Start Date Coverage End Date Lesly Arriaza [id number] NOAH Aquino [phone] [id number] Olamide Jeffrey Self - patient is the insured Medical (General) History Medical History History ICD Code asthma Broken bones High blood pressure Sciatica Chicken pox Joint implants/screws Eldridge palsy Surgical History Surgery Date(Month/Year) elbow surgery 2006 oral surgery 05/2024 Hospitalization History Reason Date(Month/Year) [facility] for a 3 day stay for torn carotid 20 11
== END 2024-11-17 15:42 | disposition home or self-care (01) ==
LOC: HO.HMCFM 14:43
PROVIDERS: PCP Internal Medicine; Visit Provider Internal Medicine
DX: I77.1 Stricture of artery (principal); J45.40 Moderate persistent asthma, uncomplicated

== ENCOUNTER → 2024-11-17 14:43 | Outpatient (BNVA) | payer OTHER, SELFPAY | PROVIDERS: PCP Internal Medicine; Visit Provider Internal Medicine | DX: J45.40 Moderate persistent asthma, uncomplicated (principal); I77.1 Stricture of artery; I10 Essential (primary) hypertension; R93.0 Abnormal findings on diagnostic imaging of skull and head, not elsewhere classified; Z79.899 Other long term (current) drug therapy | CPT/HCPCS: 96160 ==

== ENCOUNTER → 2025-01-01 10:58 | Outpatient (REF) | payer OTHER, SELFPAY ==
--- NOTE | 2025-01-01 11:08 | CA_ITS ---
Transthoracic Echocardiogram Patient (Last, First, Middle): Olamide Hawkins, Gender: Female Date of : 1960 Age: 64 Procedure Date: 01/01/2025 Procedure Type: Transthoracic Echocardiogram Location: OP Height: 162.56 cm Weight: 100.7 kg BSA: 2.04 m2 Heart Rate: bpm BP: 128 / 82 mmHg Reed Man: VINCENT Referring MD: Eileen Lopes MD Symptoms: I77.1 - Stricture of artery Study Quality: Adequate with contrast ECG Rhythm: Sinus Conclusions: - The left ventricular systolic function is low normal. The calculated ejection fraction is 52% by biplane method. - Focal severe hypertrophy of the basal septum. - There is mild mitral valve regurgitation. Findings Procedure Information Contrast agent, definity, is being given per protocol without apparent complications. Left Ventricle Normal left ventricular cavity size. There is mildly increased left ventricular wall thickness. The left ventricular systolic function is low normal. The calculated ejection fraction is 52% by biplane method. There is no evidence of regional wall motion abnormalities. Diastolic function is normal for age. Focal severe hypertrophy of the basal septum. Right Ventricle Normal right ventricular cavity size and systolic function. Atria The left atrium is mildly dilated. The right atrium is normal in size. Aortic Valve There is a normal trileaflet aortic valve. There is no aortic valve stenosis. There is no aortic valve regurgitation. Mitral Valve There is mild anterior mitral leaflet thickening. There is mild mitral annular calcification. There is mild mitral valve regurgitation. There is no mitral valve stenosis. Pulmonic Valve The pulmonic valve is likely normal. Tricuspid Valve There is trace tricuspid valve regurgitation. There is no evidence of pulmonary hypertension. Great Vessels The asc aorta and aortic arch are normal in size. Small plaque is seen in the sino tubular ridge. Venous The inferior vena cava is mildly dilated and collapses greater than 50% with inspiration. Pericardium/Pleural There is no evidence of pericardial effusion. Prior Study Comparison No prior study available for comparison. Measurements 2D Linear Measurements IVSd: 1.25 0.6-0.9/0.6-1.0 cm LVIDd: 4.40 3.9-5.3/4.2-5.9 cm LVIDd Index: 2.16 2.4-3.2/2.2-3.1 cm/m2 LVIDs: 2.66 2.0-3.6 cm LVPWd: 1.17 0.7-1.1 cm LA Diam: 4.40 2.7-3.8/3.0-4.0 cm LAIDs Index: 2.16 1.5-2.3 cm/m2 LV Mass: 241.31 67-162/88-224 g LV Mass Index: 118.29 43-95/49-115 g/m2 LVOT Diam: 2.00 3.0+(-)1.3 cm 2D Systolic Function EF 4C: 50.80 >55% EF 2C: 55.50 >55% EF BiP: 52.40 >55% Mitral Valve MV Pk E: 0.90 MV PK A: 0.87 MV Decel Time: 234.00 E/A: 1.00 E'Lateral: 7.05 E'Medial: 6.24 E/E' Med: 14.50 E/E' Lat: 12.80 PHT: 69.00 MVA PHT: 3.19 Decel Prowers: 3.87 Aortic Valve AoV Pk León: 1.41 AoV Mn León: 1.05 AoV VTI: 0.33 AoV Pk Grad: 8.00 Aov Mn Grad: 5.00 JERONIMO Cont.VTI: 2.29 LVOT LVOT Pk León: 1.12 LVOT Mn León: 0.74 LVOT VTI: 0.24 LVOT Pk Grad: 5.00 LVOT Mn Grad: 3.00 LVOT Diam: 2.00 LVOT Area: 3.14 Diastolic Function MV Pk E: 0.90 MV Pk A: 0.87 E/A: 1.00 E'Medial: 6.24 E/E' Med: 14.50 E' Laterial: 7.05 E/E' Lat: 12.80 Right Ventricle TAPSE (mm): 20.80 TVS' León: 9.24 Tricuspid Valve TR Pk León: 2.38 TR Pk Grad: 23.00 RA Press: 8.00 RVSP: 31.00 Great Vessels Aorta Sinus of Valsalva: 3.26 2.0-3.[address] Ridge: 2.01 1.7-3.4 cm Ao Asc: 3.20 2.1-3.4 cm Ao Arch: 2.90 Updated in Other Vendor System with Status of Final Harrison Bedolla MD electronically signed on 01/03/2025 11:51:35 AM with status of Final
--- OUTSIDE RECORDS SUMMARY | 2025-01-01 11:39 | XMS_ITS | Patient Health Record ---
Author Organization [facility] Address [address] [place] [address] Care Team Providers Care Riding Instructor Name Role Phone Ashely Richards Unavailable [phone] Allergies Allergen (clinical drug ingredient) Drug/Non Drug [...] tablet as needed Orally every 6 hrs PRN; Duration: 30 days 07/28/2024 Active Social History Tobacco [...] Risk Notes Problem Excessive and frequent menstruation (586994814) Excessive and frequent menstruation with regular cycle (N92.0) Active confirmed Problem Menopause (313567600) Menopausal and female climacteric states (N95.1) Active confirmed Problem Surveillance of intrauterine device contraception (685058396) Encounter for routine checking of intrauterine contraceptive device (Z30.431) Active confirmed Problem Diverticulitis of colon (772777427) Diverticulitis of intestine, part unspecified, without perforation or abscess without bleeding (K57.92) Active confirmed Problem Irregular Menstruation (46558117) Other specified irregular menstruation (N92.5) Active confirmed Problem Fatigue (86662068) Other fatigue (R53.83) Active confirmed Problem Menopause (941967492) Menopausal and female climacteric states (N95.1) Active confirmed Problem Abnormal vaginal bleeding (718160575) Other disorder of menstruation and other abnormal bleeding from female genital tract (626.8) Active confirmed Major Vital Signs Temperature 98.2 degrees Fahrenheit 05/27/2024 Blood pressure diastolic 84 mm Hg 05/27/2024 Height 65.75 in 05/27/2024 Blood pressure systolic 128 mm Hg 05/27/2024 Weight 217 lbs 05/27/2024 BMI 35.29 kg/m2 05/27/2024 Encounters Encounter Location Date Provider Diagnosis [facility] [address] [address] [address] [place] [address] 05/27/2024 Ashley Richards Encounter for gynecological examination (general) (routine) without abnormal findings Z01.419 ; Encounter for screening mammogram for malignant neoplasm of breast Z12.31 and Encounter for removal of intrauterine contraceptive device Z30.432 [facility] [address] [address] [place] [address] 05/30/2024 Ashley Richards [address] [address] [place] [address] 07/24/2024 Ashley Richards [facility] [address] [address] [place] [address] 07/29/2024 Ashley Peoplesanueva [facility] [address] [place] [address] 06/11/2024 Ashleytasha PeoplesRichards Assessments Encounter Date Diagnosis (ICD Code) Assessment Notes Treatment Notes Treatment Clinical Notes Section Notes 05/27/2024 Encounter for gynecological examination (general) (routine) without abnormal findings (ICD-10 - Z01.419) NO PAP TEST, DUE IN 2024. 05/27/2024 Encounter for screening mammogram for malignant neoplasm of breast (ICD-10 - Z12.31) REGULAR MAMMOGRAMS AND SBE'S WERE RECOMMENDED. 05/27/2024 Encounter for removal of intrauterine contraceptive [...] Provider Name:Ashley coyle, 06/02/2025 08:40:00 AM, [address], [address], [place], [address], Insurance Providers Payer Name Payer Address Payer Phone Subscriber Number Group Number Insured Name Patient Relationship to Insured Coverage Start Date Coverage End Date COLBY[employer] [address] [place] [address] [id number] JESISHAWNAMASONTabatha Radha BRITTON Self - patient is the insured Medical [...]
--- OUTSIDE RECORDS SUMMARY | 2025-01-01 11:39 | XMS_ITS ---
Author Name [facility] Organization Unknown Care Team Organization Name Specialty Phone Email Start Date End Da te [facility] Agueda Heath Primary Care 02/28/202301/13 [facility] Radha, MARTA Primary Care 08/02/202212/26 [facility] Clotilde Brar Primary Care 04/04/2022
--- OUTSIDE RECORDS SUMMARY | 2025-01-01 11:39 | XMS_ITS | Patient Health Record ---
Author Organization [facility] Address [address] [place] [address] Care Team Providers Care Training Mgr Name Role Phone Quynh Weiner Unavailable [phone] Allergies Allergen (clinical drug ingredient) Drug/Non Drug [...] in th e morning Orally Once a day; Duration: 30 day(s) Active Feldene 20 MG 1 capsule with food Orally Once a day; Duration: 30 day(s) 12/30/2019 Not-Taking Ammonium Lactate 12 % 1 application Externally Twice a day; Duration: 30 days Active Vitamin D Active Zinc Active Vitamin B Complex Ac tive Vitamin B12 Active Vitamin B6 Active Vitamin C Active Mirena Not-Taking Flovent HFA Active Feldene 20 MG 1 capsule with food Orally Once a day; Duration: 30 day(s) 07/31/2013 Not-Taking Social History Tobacco use other than smoking: Question Answer Notes Are you an other tobacco user? No Problems Problem Type SNOMED Code ICD Code Onset Dates Problem Status W/U Status Risk Notes Problem Hallux valgus of right foot (5074613783) Hallux valgus of right foot (M20.11) Active confirmed Problem Neuritis of right foot (G57.91) Active confirmed Vital Signs Heart Rate 82 /min 07/18/2024 Blood pressure diastolic 96 mm Hg 07/18/2024 Height 5ft 5 in in 07/18/2024 Blood pressure systolic 152 mm Hg 07/18/2024 Weight 215 lbs 07/18/2024 BMI 35.77 kg/m2 07/18/2024 Encounters Encounter Location Date Provider Diagnosis [facility] [address] 07/18/2024 Quynh Black Pain in right foot M79.671 ; Neuritis of right foot G57.91 ; Hallux valgus of right foot M20.11 and Bunion, right M21.[address] [address] 07/18/2024 Quynh Black [address] [address] 07/18/2024 Quynh Black Assessments Encounter Date Diagnosis [...] X ray : Foot, right 3V 07/31/2013 [id number] TENDON SHEATH/LIGAMENT 1 [id number],[id number] TENDON SHEATH/LIGAMENT 0 06/30/2020 [id number] TENDON SHEATH/LIGAMENT 0 11/14/2022 Insurance Providers Payer Name Payer Address Payer Phone Subscriber Number Group Number Insured Name Patient Relationship to Insured Coverage Start Date Coverage End Date Lesly QUINONEZ [address] NOAH Aquino [phone] [id number] Olamide Jeffrey Self - patient is the insured Medical (General) History Medical History History ICD Code asthma Broken bones High blood pressure Sciatica Chicken pox Joint implants/screws Badger palsy Surgical History Surgery Date(Month/Year) elbow surgery 2006 oral surgery 05/2024 Hospitalization History Reason Date(Month/Year) [facility] for a 3 day stay for torn carotid 20 11
== END ==
LOC: HO.CARD 10:58
PROVIDERS: PCP Internal Medicine; Visit Provider Internal Medicine
DX: I77.1 Stricture of artery (principal); I51.7 Cardiomegaly; I34.0 Nonrheumatic mitral (valve) insufficiency
CPT/HCPCS: 93306; Q9957

== ENCOUNTER → 2025-01-01 11:08 | Outpatient (BNV) | payer OTHER, SELFPAY | PROVIDERS: PCP Internal Medicine; Visit Provider Internal Medicine | DX: I42.2 Other hypertrophic cardiomyopathy (principal) | CPT/HCPCS: 93306 ==

== ENCOUNTER 2025-01-20 13:21 | Outpatient (REF) | payer OTHER, SELFPAY ==
[2025-01-20 17:54] LABS: MANUAL DIFF FLAG NO
[2025-01-20 18:24] LABS: Hematocrit 40.8 % (37.0-47.0); Hemoglobin 14.3 g/dl (12.0-16.0); Imm Gran Abs Auto 0.02 X10*3/uL (0.00-0.03); Imm Gran Pct Auto 0.4 % (0.0-0.4); Lymphocytes Absolute Auto 1.6 X10*3/uL (1.2-4.9); Mean Corpuscular HGB Conc 35.0 g/dl (31.0-35.0); Mean Corpuscular Hemoglobin 30.5 pg (27.0-33.0); Mean Corpuscular Volume 87.0 fL (80.0-98.0); NRBC Abs Auto 0.000 X10*3/uL (0.0-0.012); NRBC Pct Auto 0.0 /100WBC (0.0-0.2); Platelet Count 242 X10*3/uL (160-400); Red Blood Count 4.69 X10*6/uL (4.20-5.50); White Blood Count 5.0 X10*3/uL (4.8-10.8)
[2025-01-21 05:54] LABS: Class Alternaria alternata 0; Class Aspergillus fumigatus 0; Class Bermuda Grass 0; Class Birch 1; Class Cat Dander 1; Class Cladosporium herbarum 0; Class Cockroach 0; Class Common Ragweed 0; Class Cottonwood 0; Class Derm. pterony 0/1; Class Dermatophagoides farinae 1; Class Dog Dander 2; Class Elm 0; Class Maple Box Elder 0/1; Class Mountain Cedar 0; Class Mouse Urine Protein 0/1; Class Mugwort 0; Class Oak 1; Class Penicillium crysogenum 0; Class Rough Pigweed 0; Class Sheep Sorrel 0; Class Sycamore 0; Class Timothy Grass 0; Class Walnut Tree 0; Class White Ash 0; Class White Mulberry 0; D002 - IgE D farinae 0.35 kU/L; E001 - IgE Cat Dander 0.41 kU/L; E005 - IgE Dog Dander 2.04 kU/L; G006 - IgE Timothy Grass <0.10 kU/L; I006-IgE Cockroach, German <0.10 kU/L; M002 - IgE Cladosporium herbar <0.10 kU/L; M003 - IgE Aspergillus fumigat <0.10 kU/L; M006 - IgE Alternaria alternat <0.10 kU/L; T001 IgE Maple/Box Elder 0.20 kU/L; T006 - IgE Cedar, Mountain <0.10 kU/L; T007 - IgE Oak, White 0.63 kU/L; T008 IgE Elm, American <0.10 kU/L; T010 - IgE Walnut <0.10 kU/L; T011 - IgE Maple Leaf Sycamore <0.10 kU/L; T014 - IgE Cottonwood <0.10 kU/L; T015 - IgE Ash, White <0.10 kU/L; T070 - IgE White Mulberry <0.10 kU/L; W001 - IgE Ragweed, Short <0.10 kU/L; W006 - IgE Mugwort <0.10 kU/L; W014 IgE Pigweed, Common <0.10 kU/L; W018 IgE Sheep Sorrel <0.10 kU/L
== END 2025-01-20 13:22 | disposition home or self-care (01) ==
LOC: HO.WFDLDS 13:21
PROVIDERS: PCP Internal Medicine; Referring Provider Internal Medicine; Visit Provider Nurse Practitioner Family
DX: J45.40 Moderate persistent asthma, uncomplicated (principal); R06.02 Shortness of breath; R06.83 Snoring; Z91.09 Other allergy status, other than to drugs and biological substances; Z79.899 Other long term (current) drug therapy
CPT/HCPCS: 36415; 82785; 85025; 86003

== ENCOUNTER 2025-01-20 13:21 | Outpatient (AMB) | payer OTHER, SELFPAY ==
--- NOTE | 2025-01-20 13:23 | A.OFFVIS_ITS ---
Vital Signs 01/20/25 13:24 Height 5 ft 4.5 in Weight 221 lb BMI 37.3 BP 140/62 H Blood Pressure Location Rt brachial Position Sitting Pulse 84 Pulse Source Pulse Oximeter Pulse Oximetry (%) 97 Oxygen Delivery Method Room Air Intake Visit Reasons: Shortness of breath Home Health Administrator Required: No Telephone Collector: Telephone Collector offered & declined Accompanied by: Self / Same As Patient Allergies clarithromycin (From Biaxin) Allergy (Severe, Verified 01/20/25 13:28) Hives cat dander Allergy (Unknown, Verified 01/20/25 13:28) Unknown dog dander Allergy (Unknown, Verified 01/20/25 13:28) Unknown horse dander Allergy (Unknown, Verified 01/20/25 13:28) Unknown Medication List - Last Reconciled 01/20/25 by Leida Sinha LPN albuterol sulfate 90 mcg/actuation 2 puffs PO Q6H PRN azithromycin For 250 mg dose pack: take 500 mg today (day 1), then 250 mg for 4 days (days 2-5) PO Breo Ellipta 200-25 mcg/dose (fluticasone furoate-vilanterol) 1 inh inhalation DAILY NS hydrochlorothiazide 25 mg PO DAILY multivitamin 1 tab PO DAILY HPI HPI Shortness of breath: Details: Olamide is a pleasant 64 year old female, never smoker with underlying asthma and HTN. She was referred by PCP for pulmonary evaluation. She has been suboptimally controlled on Breo after recent URI in October where she was treated with abx and prednisone. She continues to report intermittent dyspnea however continues to be quite active. She recently underwent echo which revealed some changes with need for further evaluation through cardiology and awaiting appointment to be scheduled. She endorses seasonal allergies, no recent allergy testing. She has an upcoming PFT scheduled next month by PCP. Recent CXR revealed unremarkable and CT chest performed at [place], no report available today. She endorses second hand smoke exposures and denies any occupational exposures. She also reports loud snoring and daytime fatigue, no prior h/o ARSH or sleep study. [facility] Social History Housing: House Alcohol intake: current Patient Tobacco Use Status: Never used Tobacco e-Cigarette/Vaping Use: Never Used Second Hand Smoke Exposure: No service: No Current occupational status: employed Current occupation: terminal operations manager Current occupational exposures/hazards: No Cognitive needs: No Hearing needs: No Vision needs: No Review of Systems Const Denies chills, Denies excessive sweating, Denies fever(s), Denies headache(s) and Denies night sweats Eyes Denies dry eyes, Denies irritation and Denies itchy eyes ENT Reports Normal hearing present, Denies headache(s), Denies nasal congestion, Denies nasal discharge, Denies post nasal drip and Denies sore throat Card Denies chest pain, Denies chest pain at rest, Denies chest pain with activity, Denies claudication, Denies leg edema, Denies orthopnea and Denies paroxysmal nocturnal dyspnea Resp Denies chest congestion, Denies cough, Denies excessive phlegm production, Denies pain on inspiration, Denies pain with cough, Denies stridor and Denies wheezing Musc Denies myalgias Neuro Reports Normal hearing present and Denies headache(s) Endo Denies excessive sweating Norman/Lymph Denies lymphadenopathy Aller/Immun Denies itchy eyes, Denies seasonal rhinorrhea and Denies wheezing Physical Exam Vital Signs: Last Vital Signs Pulse 84 01/20/25 13:24 BP 140/62 H 01/20/25 13:24 Pulse Ox 97 01/20/25 13:24 Oxygen Delivery Method Room Air 01/20/25 13:24 BMI result Body Mass Index 37.3 Const General: cooperative, healthy appearing, comfortable, no acute distress, well developed and alert Nutritional Appearance: obese Orientation/consciousness: patient oriented x3 Limitations: no limitations HEENT Head: Yes normal to inspection, Yes normocephalic and Yes atraumatic Ears: hearing grossly normal bilaterally and external ears normal Eyes General: appearance normal, both eyes and all related structures Eyelids: Yes eyelids normal Sclerae: sclerae normal EOM: EOMs intact bilaterally Neck Neck: Yes normal visual inspection and Yes no lymphadenopathy Lymphatic: no lymphadenopathy noted Chest Chest palpation & inspection: normal inspection of the chest Resp Effort & Inspection: normal respiratory effort, able to speak in complete sentences, no audible wheezes, no cough, no stridor, not tachypneic, no tripod positioning and no use of accessory muscles Auscultation: clear to auscultation bilaterally Cardio Jugular venous distension: no JVD Rate: regular rate Rhythm: regular rhythm Skin Other: warm, dry General skin exam: no rashes or lesions noted Neuro General: patient oriented x3 Cranial nerves: Yes Normal hearing present Cognition (Neuro): normal cognition Gait exam (Neuro): Normal gait present Extrem General: Yes normal to inspection, Yes capillary refill normal, Yes no clubbing, cyanosis or edema and Yes no pedal edema Psych Appearance: grossly normal and well kempt Speech and movement: Normal speech and movement present and Clear speech present Affect: normal affect Attitude: cooperative Thought process: Normal thought process present Thought content: Normal thought content present Insight: Good insight present (Psych) Judgement: Good judgement present (Psych) Assessment & Plan Assessment & Plan (1) Asthma: Code(s): J45.909 - Unspecified asthma, uncomplicated Category: Medical Qualifiers: Asthma severity: moderate Asthma persistence: persistent Asthma complication type: unspecified Qualified Code(s): J45.40 - Moderate persistent asthma, uncomplicated (2) Shortness of breath: Code(s): R06.02 - Shortness of breath Category: Medical (3) Loud snoring: Code(s): R06.83 - Snoring Category: Medical Plan Olamide presents for pulmonary evaluation with known h/o asthma and reports suboptimal control with Breo, will trial Trelegy. There is also a question of a cardiac component and will have further evaluation with cardiology. She had recent chest CT performed at [facility] will obtain and review PFT once resulted. Will also send for home sleep study as she reports symptoms suggestive of ARSH and RAST to assess for an allergic component. All questions were answered and patient is in agreement of plan. Will follow up in 6-8 weeks or sooner if needed. Orders: Orders Immunoglobulin E 01/20/25 Z91.09 - Other allergy status, other than to drugs and biological substances Complete Blood Count Auto Diff 01/20/25 Z91.09 - Other allergy status, other than to drugs and biological substances Resp Allergy Profile Region I 01/20/25 Z91.09 - Other allergy status, other than to drugs and biological substances RT home sleep study Today R06.83 - Snoring Medications: New gwasotfffgs-juijajjkz-yujphwmx 200-62.5-25 mcg (Trelegy Ellipta) 1 inh inhalation DAILY 60 ea 3RF Coding Level of Care Code New Pt Level 3 (51545) Diagnoses Moderate persistent asthma, unspecified whether complicated J45.40 Asthma severity: moderate Asthma persistence: persistent Asthma complication type: unspecified Shortness of breath R06.02 Loud snoring R06.83
[2025-01-20 13:24] VITALS: BP 140/62; PULSE 84; O2SAT 97; BMI 37.3
--- OUTSIDE RECORDS SUMMARY | 2025-01-20 14:12 | XMS_ITS | Patient Health Record ---
Author Organization [facility] Address [address] [place] [address] Care Team Providers Care Commissary Representative Name Role Phone Quynh Weiner Unavailable [phone] Allergies Allergen (clinical drug ingredient) Drug/Non Drug [...] Notes Problem Hallux valgus of right foot (4046926734) Hallux valgus of right foot (M20.11) Active confirmed Problem Neuritis of right foot (G57.91) Active confirmed Vital Signs Heart Rate 82 /min 07/18/2024 Blood pressure diastolic 96 mm Hg 07/18/2024 Height 5ft 5 in in 07/18/2024 Blood pressure systolic 152 mm Hg 07/18/2024 Weight 215 lbs 07/18/2024 BMI 35.77 kg/m2 07/18/2024 Encounters Encounter Location Date Provider Diagnosis [facility] [address] 07/18/2024 Quynh Black Pain in right foot M79.671 ; Neuritis of right foot G57.91 ; Hallux valgus of right foot M20.11 and Bunion, right M21.[address] [address] 07/18/2024 Quynh Black [address] [address] 07/18/2024 Quynh Black Assessments Encounter Date Diagnosis [...] X ray : Foot, right 3V 07/31/2013 [id number],[id number] TENDON SHEATH/LIGAMENT 1 [id number] TENDON SHEATH/LIGAMENT 0 06/30/2020 [id number] TENDON SHEATH/LIGAMENT 0 11/14/2022 Insurance Providers Payer Name Payer Address Payer Phone Subscriber Number Group Number Insured Name Patient Relationship to Insured Coverage Start Date Coverage End Date Lesly QUINONEZ [id number] NOAH Aquino [phone] [id number] Olamide Jeffrey Self - patient is the insured Medical (General) History Medical History History ICD Code asthma Broken bones High blood pressure Sciatica Chicken pox Joint implants/screws [place] palsy Surgical History Surgery Date(Month/Year) elbow surgery 2006 oral surgery 05/2024 Hospitalization History Reason Date(Month/Year) [facility] for a 3 day stay for torn carotid 20 11
--- OUTSIDE RECORDS SUMMARY | 2025-01-20 14:12 | XMS_ITS | Patient Health Record ---
Author Organization [employer] [facility] Address [address] [place] [address] Care Team Providers Care Aircraft Part Assembler Name Role Phone Ashley Richards Unavailable [phone] Allergies Allergen (clinical drug ingredient) Drug/Non Drug [...] 1 tablet Orally Once a day Active Fluconazole 150 MG 1 tablet Orally Now then every 3 days as needed for symptoms; Duration: 10 days 01/05/2025 Active Biotin 1000 MCG 1 tablet Orally Once a day Active Terconazole 0.8 % 1 applicatorful at bedtime Vaginal Once a day; Duration: 3 days 01/05/2025 Active Zinc 100 MG 1 tablet Orally [...] Risk Notes Problem Excessive and frequent menstruation (033460755) Excessive and frequent menstruation with regular cycle (N92.0) Active confirmed Problem Menopause (806280585) Menopausal and female climacteric states (N95.1) Active confirmed Problem Surveillance of intrauterine device contraception (002810722) Encounter for routine checking of intrauterine contraceptive device (Z30.431) Active confirmed Problem Diverticulitis of colon (359419060) Diverticulitis of intestine, part unspecified, without perforation or abscess without bleeding (K57.92) Active confirmed Problem Irregular Menstruation (94296265) Other specified irregular menstruation (N92.5) Active confirmed Problem Fatigue (33713493) Other fatigue (R53.83) Active confirmed Problem Menopause (563572088) Menopausal and female climacteric states (N95.1) Active confirmed Problem Abnormal vaginal bleeding (593122324) Other disorder of menstruation and other abnormal bleeding from female genital tract (626.8) Active confirmed Major Vital Signs Temperature 98.2 degrees Fahrenheit 05/27/2024 Blood pressure diastolic 84 mm Hg 05/27/2024 Height 65.75 in 05/27/2024 Blood pressure systolic 128 mm Hg 05/27/2024 Weight 217 lbs 05/27/2024 BMI 35.29 kg/m2 05/27/2024 Encounters Encounter Location Date Provider Diagnosis [facility] [address] [facility] [address] [place] [address] 05/27/2024 Ashley Richards Encounter for gynecological examination (general) (routine) without abnormal findings Z01.419 ; Encounter for screening mammogram for malignant neoplasm of breast Z12.31 and Encounter for removal of intrauterine contraceptive device Z30.432 Total [facility] [address] [address] [facility] [address] [place] [address] 05/30/2024 Ashley Richards Total [facility] [address] [place] [address] 07/24/2024 Ashley Richards Total [facility] [address] [place] [address] 07/29/2024 Ashley Richards Total [facility] [address] [place] [address] 01/05/2025 Ashley Richards Total [facility] [address] [place] [address] 06/11/2024 Ashley Richards Assessments Encounter Date Diagnosis [...] MAMMOGRAM, SCREENING 05/23/2023 MAMMOGRAM, SCREENING 05/27/2024 Urinalysis 05/18/2021 Urinalysis 05/17/2020 25OH VITAMIN D 05/12/2019 25OH VITAMIN D 05/23/2023 COMPLETE BLOOD COUNT 05/23/2023 COMPLETE URINALYSIS 05/18/2021 COMPLETE URINALYSIS 10/01/2017 COMPLETE URINALYSIS 04/14/2016 COMPLETE URINALYSIS 04/14/2015 COMPLETE URINALYSIS 05/17/2020 COMPLETE URINALYSIS 05/12/2019 COMPREHENSIVE METABOLIC PANEL 05/23/2023 ESTRADIOL 03/08/2021 ESTRADIOL 05/12/2019 FSH 05/12/2019 HEMOGLOBIN A1C 05/23/2023 LH 05/12/2019 LIPID PANEL-B 05/23/2023 TSH 05/23/2023 URINE CULTURE 10/01/2017 URINE CULTURE 04/14/2016 URINE CULTURE 05/12/2019 URINE CULTURE 05/17/2020 URINE CULTURE 05/18/2021 MM Digital Mammo Screening 05/12/2019 MM Digital Mammo Screening 05/17/2020 MM Digital Mammo Screening 05/23/2022 MM Digital Mammo Screening 05/23/2023 MM Digital Mammo Screening 05/18/2021 MM Digital Mammo Screening 05/27/2024 Right Breast Ultrasound 12/04/2023 MM Digital Diagnostic Mammogram, Right 0 12/04/2023 Next Appt Details Provider Name:Ashley coyle, 06/02/2025 08:40:00 AM, [address], [address], [place], [address], Insurance Providers Payer Name Payer Address Payer Phone Subscriber Number Group Number Insured Name Patient Relationship to Insured Coverage Start Date Coverage End Date [employer] [address] [place] [address] [id number] VANESSATabatha BRITTON Garcia Self - patient is the [...]
== END 2025-01-20 14:18 | disposition home or self-care (01) ==
LOC: HO.HPSW 13:22
PROVIDERS: PCP Internal Medicine; Referring Provider Internal Medicine; Visit Provider Nurse Practitioner Family
DX: J45.40 Moderate persistent asthma, uncomplicated (principal); R06.02 Shortness of breath; R06.83 Snoring
CPT/HCPCS: 99203

== ENCOUNTER 2025-02-06 09:52 | Outpatient (REF) | payer OTHER, SELFPAY ==
--- NOTE | 2025-02-06 09:56 | PFT_ITS ---
Indication: Dyspnea Spirometry FEV1 to FVC 70%; FEV1 2.32 L; FVC 3.32 L. No significant response to bronchodilators noted. Lung Volumes Total lung capacity 100% predicted; residual volume 102% predicted Diffusion Capacity DLCO 104% predicted Comparisons None Interpretation There is an obstructive ventilatory defect consistent with mild obstruction. This could be secondary to uncontrolled asthma or mild COPD. No significant response to bronchodilators noted. Lung volumes are normal except for decrease in the expiratory reserve volume secondary to likely an elevated BMI. Diffusing capacity is within normal limits. Echo correlation warranted. MTDD
[2025-02-06 10:53] VITALS: PULSE 66; O2SAT 98
--- OUTSIDE RECORDS SUMMARY | 2025-02-06 11:07 | XMS_ITS | Patient Health Record ---
Author Organization [facility] Address [address] [place] [address] Care Team Providers Care Search Engineer Name Role Phone Quynh Weiner Unavailable [phone] Allergies Allergen (clinical drug ingredient) Drug/Non Drug [...] Notes Problem Hallux valgus of right foot (0148279922) Hallux valgus of right foot (M20.11) Active confirmed Problem Mononeuropathy of lower limb (533467771) Neuritis of right foot (G57.91) Active confirmed Vital Signs Heart Rate 82 /min 07/18/2024 Blood pressure diastolic 96 mm Hg 07/18/2024 Height 5ft 5 in in 07/18/2024 Blood pressure systolic 152 mm Hg 07/18/2024 Weight 215 lbs 07/18/2024 BMI 35.77 kg/m2 07/18/2024 Encounters Encounter [facility] Date [facility] [address] 07/18/2024 Quynh Black Pain in right foot M79.671 ; Neuritis of right foot G57.91 ; Hallux valgus of right foot M20.11 and Bunion, right M21.[address] [address] 07/18/2024 Quynh Black [address] [address] 07/18/2024 Quynh Black Assessments Encounter Date Diagnosis [...] X ray : Foot, right 3V 07/31/2013 [id number] TENDON SHEATH/LIGAMENT 1 [id number] TENDON SHEATH/LIGAMENT 0 06/30/2020 [id number] TENDON SHEATH/LIGAMENT 0 11/14/2022 Insurance Providers Payer Name Payer Address Payer Phone Subscriber Number Group Number Insured Name Patient Relationship to Insured Coverage Start Date Coverage End Date Cigna [address] [place] [phone] [id number] Olamide Jeffrey Self - patient is the insured Medical (General) History Medical History History ICD Code asthma Broken bones High blood pressure Sciatica Chicken pox Joint implants/screws Newbern palsy Surgical History Surgery Date(Month/Year) elbow surgery 2006 oral surgery 05/2024 Hospitalization History Reason Date(Month/Year) [facility] for a 3 day stay for torn carotid 20 11
--- OUTSIDE RECORDS SUMMARY | 2025-02-06 11:07 | XMS_ITS | Patient Health Record ---
Author Organization [employer] [facility] Address [address] [place] [address] Care Team Providers Care Golf Club Weigher Name Role Phone Ashley Richards Unavailable [phone] Allergies Allergen (clinical drug ingredient) Drug/Non Drug [...] Risk Notes Problem Excessive and frequent menstruation (647104647) Excessive and frequent menstruation with regular cycle (N92.0) Active confirmed Problem Menopause (593395606) Menopausal and female climacteric states (N95.1) Active confirmed Problem Surveillance of intrauterine device contraception (290280045) Encounter for routine checking of intrauterine contraceptive device (Z30.431) Active confirmed Problem Diverticulitis of colon (502900594) Diverticulitis of intestine, part unspecified, without perforation or abscess without bleeding (K57.92) Active confirmed Problem Irregular Menstruation (84263314) Other specified irregular menstruation (N92.5) Active confirmed Problem Fatigue (70035774) Other fatigue (R53.83) Active confirmed Problem Menopause (767317228) Menopausal and female climacteric states (N95.1) Active confirmed Problem Abnormal vaginal bleeding (591175221) Other disorder of menstruation and other abnormal bleeding from female genital tract (626.8) Active confirmed Major Vital Signs Temperature 98.2 degrees Fahrenheit 05/27/2024 Blood pressure diastolic 84 mm Hg 05/27/2024 Height 65.75 in 05/27/2024 Blood pressure systolic 128 mm Hg 05/27/2024 Weight 217 lbs 05/27/2024 BMI 35.29 kg/m2 05/27/2024 Encounters Encounter Location Date Provider Diagnosis [facility] [address] [place] [address] [facility] [address] [place] [address] 05/27/2024 Ashley Richards Encounter for gynecological examination (general) (routine) without abnormal findings Z01.419 ; Encounter for screening mammogram for malignant neoplasm of breast Z12.31 and Encounter for removal of intrauterine contraceptive device Z30.432 [place] [address] [facility] [address] [place] [address] 05/30/2024 Ashley Richards Total [facility] [address] [place] [address] 07/24/2024 Ashley Richards Total [facility] [address] [place] [address] 07/29/2024 Ashley Richards Total [facility] [address] [place] [address] 01/05/2025 Ashley Richards Total [facility] [address] [place] [address] 06/11/2024 Ashley Richards Assessments Encounter Date Diagnosis [...] Provider Name:Ashley coyle, 06/02/2025 08:40:00 AM, [address], [address], [place], [address], Insurance Providers Payer Name Payer Address Payer Phone Subscriber Number Group Number Insured Name Patient Relationship to Insured Coverage Start Date Coverage End Date C[employer] [address] [place] [address] [id number] VANESSATabatha BRITTON Garcia Self - patient is [...]
== END 2025-02-06 09:53 | disposition home or self-care (01) ==
LOC: HO.RESP 09:52
PROVIDERS: PCP Internal Medicine; Visit Provider Internal Medicine
DX: R06.02 Shortness of breath (principal)
CPT/HCPCS: 94060; 94640; 94727; 94729

== ENCOUNTER → 2025-02-06 09:56 | Outpatient (BNV) | payer OTHER, SELFPAY | PROVIDERS: PCP Internal Medicine; Visit Provider Hospitalist | DX: J98.4 Other disorders of lung (principal) | CPT/HCPCS: 94060; 94727; 94729 ==

== ENCOUNTER 2025-03-17 10:55 | Outpatient (AMB) | payer OTHER, SELFPAY ==
--- NOTE | 2025-03-17 10:59 | A.OFFPC_ITS ---
Vital Signs 03/17/25 11:07 Height 5 ft 4.5 in Weight 218 lb BMI 36.8 BP 128/82 Blood Pressure Location Rt brachial Position Sitting Respiration 20 Pulse 72 Pulse Source Pulse Oximeter Temp 98.2 F Temp Source Oral Pulse Oximetry (%) 93 Oxygen Delivery Method Room Air Intake Visit Reasons: CPE (reschedule from 01/12) Intake Note: cpe Cane Weigher Required: No Allergies clarithromycin (From Biaxin) Allergy (Severe, Verified 03/17/25 11:03) Hives cat dander Allergy (Unknown, Verified 03/17/25 11:03) Unknown dog dander Allergy (Unknown, Verified 03/17/25 11:03) Unknown horse dander Allergy (Unknown, Verified 03/17/25 11:03) Unknown Tobacco use date assessed: 03/17/25 Dental Screening Dental Screen Date: 03/17/25 Did you have a dental visit in the last 12 months?: Yes Did you have a dental problem in the last 6 months where you did not have access to dental care?: No Was dental information given to patient?: Patient has dentist HPI HPI Comments History of Present Illness Details The patient is a 64 year old female with a past medical history of hypertension, asthma presenting for CPE CV: On hctz 25 daily. Denies chest pain, exertional dyspnea. 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 On Breo. Takes albuterol as needed. Follows with ENT. History of torn carotid. Was following with Dr Alvarado. Had follow up MR. Being referred to neurosurgery-reassurance provided Denies RUFF. MSK: History of calf pain, plantar fasciits. Sees podiatry Following on [facility] Follows with Dr Hawkins addiction specialist Mammo ordered Colonoscopy 2022-5 year polyps. [facility] History of Shingles last June. Flu shot today ROS see HPI PHYSICAL EXAM: GENERAL: Alert and oriented x 3. NAD EYES: EOMI. Anicteric. HENT: Moist mucous membranes. No scleral icterus. No cervical lymphadenopathy. LUNGS: Poor air entry b/l. right posterior rhonci CARDIOVASCULAR: Regular rate and rhythm. No murmur. No JVD. ABDOMEN: Soft, non-tender +bs EXTREMITIES: No edema. Non-tender. SKIN: No rashes or lesions. Warm. NEUROLOGIC: No focal neurological deficits. CN II-XII grossly intact PSYCHIATRIC: Cooperative. Appropriate mood and affect [facility] Social History Housing: House Alcohol intake: current Patient Tobacco Use Status: Never used Tobacco e-Cigarette/Vaping Use: Never Used Second Hand Smoke Exposure: No service: No Current occupational status: employed Current occupation: employee development manager Current occupational exposures/hazards: No Cognitive needs: No Hearing needs: No Vision needs: No Questionnaire PHQ-9 Over the last 2 weeks, how often have you been bothered by any of the following problems? 1. Little interest or pleasure in doing things: not at all 2. Feeling down, depressed, or hopeless: not at all 3. Trouble falling or staying asleep, or sleeping too much: not at all 4. Feeling tired or having little energy: several days 5. Poor appetite or overeating: not at all 6. Feeling bad about yourself - or that you are a failure or have let yourself or your family down: not at all 7. Trouble concentrating on things, such as reading the newspaper or watching television: several days 8. Moving or speaking so slowly that other people could have noticed. Or the opposite - being so fidgety or restless that you have been moving around a lot more than usual: not at all 9. Thoughts that you would be better off or of hurting yourself in some way: not at all Total score: 2 Depression Screening Interpretation: Negative Depression Screening Done: Yes 80040 - PHQ-9 Billing: Yes Source: Developed by Drs. Parish Anderson, Halima Johnson, Timi Chandra and colleagues, with an educational rufino from [employer]. Thrive Questionnaire Date Thrive assessed: 09/09/24 I am a: Patient What is your living situation today?: I have a steady place to live Within the past 12 months, did the food you bought not last and you didn't have the money to get more?: Never true Within the past 12 months, did you worry whether your food would run out before you got money to buy more?: Never true Do you have trouble paying for medicines?: No Do you have trouble getting transportation to medical appointments?: No Do you have trouble paying your heating and electricity bill?: No Do you have trouble taking care of your child, family member or friend?: No Do you have trouble with day-to-day activities such as bathing, preparing meals, shopping, managing finances, etc.?: No Are you currently unemployed and looking for a job?: No Are you interested in more education?: Yes Please select the resources that you would like help with: None Currently or been in a relationship where the following occur: No concerns reported THRIVE Score: 0 AUDIT C Alcohol Use Questionnaire (AUDIT-C) 1. How often do you have a drink containing alcohol?: Monthly or less 2. How many drinks containing alcohol do you have on a typical day when you are drinking?: 1 or 2 3. How often do you have six or more drinks on one occasion?: Never Total Score: 1 GRACIA-7 AMB Questionnaire GRACIA-7 Date GRACIA - 7 assessed: 03/17/25 Feeling nervous, anxious, or on edge: 0 = Not at all Not being able to stop or control worryin = Several days Worrying too much about different things: 1 = Several days Trouble relaxin = Several days Being so restless that it is hard to sit still: 0 = Not at all Becoming easily annoyed or irritable: 0 = Not at all Feeling afraid as if something awful might happen: 0 = Not at all Total GRACIA-7 score (0-4 normal; 5-9 mild; 10-14 moderate; 15-21 severe): 3 Source: Developed by Drs. Parish Anderson, Halima Johnson, Timi Chandra and colleagues, with an educational rufino from [employer]. GRACIA-7 Assessment Billing GRACIA-7 Assessment Tool: GRACIA-7 Assessment 54753 ACT Questionnaire In the past 4 weeks, how much of the time did your asthma keep you from getting as much done at work, school or at home?: A little of the time During the past 4 weeks, how often have you had shortness of breath?: 1-2 times a week During the past 4 weeks, how often did your asthma symptoms wake you up at night or earlier than usual in the morning?: Not at all During the past 4 weeks, how often have you had to use your rescue inhaler or nebulizer medication?: 2-3 times a week How would you rate your asthma control during the past 4 weeks?: Well controlled Score: 20 Physical exam (Primary Care) Vital Signs: Last Vital Signs Temp 98.2 F 03/17/25 11:07 Pulse 72 03/17/25 11:07 Resp 20 03/17/25 11:07 BP 128/82 03/17/25 11:07 Pulse Ox 93 03/17/25 11:07 Oxygen Delivery Method Room Air 03/17/25 11:07 BMI result Body Mass Index 36.8 Tobacco/Smoking Status: Tobacco use Status Tobacco use date assessed 03/17/25 03/17/25 11:13 Patient Tobacco Use Status Never used Tobacco 03/17/25 11:13 e-Cigarette/Vaping Use Never Used 03/17/25 11:13 PHQ-9: PHQ-9 Score PHQ-9: Total score 2 03/19/25 10:53 Depression Screening Interpretation: Negative Thrive Assessment: Date of Thrive Assessment Date Thrive assessed 09/09/24 03/17/25 11:13 Currently or been in a relationship where the following occur: No concerns reported Coding Level of Care Code Est Pt Prev Care 40-64y(57223) Diagnoses Physical exam Z00.00 Moderate persistent asthma, unspecified whether complicated J45.40 Asthma complication type: unspecified Asthma persistence: persistent Asthma severity: moderate Primary hypertension I10 Hypertension type: primary hypertension Additional Codes GRACIA-7 Assessment Billing - GRACIA-7 Assessment Tool: GRACIA-7 Assessment 20806 ([id number]) PHQ-9 - 01655 - PHQ-9 Billing: Yes ([id number]) Assessment & Plan Assessment & Plan (1) Physical exam: Code(s): Z00.00 - Encounter for general adult medical examination without abnormal findings (2) Asthma: Code(s): J45.909 - Unspecified asthma, uncomplicated Category: Medical Qualifiers: Asthma complication type: unspecified Asthma persistence: persistent Asthma severity: moderate Qualified Code(s): J45.40 - Moderate persistent asthma, uncomplicated (3) Hypertension: Code(s): I10 - Essential (primary) hypertension Category: Medical Qualifiers: Hypertension type: primary hypertension Qualified Code(s): I10 - Essential (primary) hypertension Plan CPE Interval history reviewed Preventive measures for age discussed Asthma-improved controlled. Following pulm HTN-controlled on current medication Labs ordered Orders: Orders Comprehensive Met. Panel 03/17/25 I10 - Essential (primary) hypertension, J45.40 - Moderate persistent asthma, uncomplicated Lipid Panel 03/17/25 I10 - Essential (primary) hypertension, J45.40 - Moderate persistent asthma, uncomplicated Hemoglobin A1c 03/17/25 I10 - Essential (primary) hypertension, J45.40 - Moderate persistent asthma, uncomplicated TSH reflex Free T4 03/17/25 I10 - Essential (primary) hypertension, J45.40 - Moderate persistent asthma, uncomplicated MM tomosynthesis screening BI 03/17/25 Z12.31 - Encounter for screening mammogram for malignant neoplasm of breast
[2025-03-17 11:07] VITALS: BP 128/82; PULSE 72; RESP 20; TEMP 36.8; O2SAT 93; BMI 36.8
--- OUTSIDE RECORDS SUMMARY | 2025-03-17 13:38 | XMS_ITS | Clinical Summary ---
Author Organization [facility] Address [address] [place] [address] Care Team Providers Care Collections Manager Name Role Phone Donna Villasenor RN Unavailable Unavailable Social History Tobacco Use Types Packs/Day Years Used Date Smoking Tobacco: Never Assessed Comments Unknown Sex and Gender Information Value Date Recorded Sex Assigned at Not on file Legal Sex Female 1:13 PM MST Gender Identity Not on file Sexual Orientation Not on file Plan of Treatment Upcoming Encounters Date Type Department Care Team ([facility] Contact Info) Description 03/18/2025 9:30 AM EDT Health Coaching Visit [facility] Terminal Worker [place] [address] [place] [address] Donna Villasenor, RN Health Maintenance Due Date Last Done Comments CT Colonography 1961 Cologuard 1961 Colonoscopy 1961 Colorectal Cancer Screening 1961 FOBT/FIT 1961 Hepatitis C Screening 1961 Sigmoidoscopy 1961 MMR Vaccines (1 of 1 - Stand gaston series) 1962 PHQ-9 Depression Screen 1973 Annual Preventive Exam 09/13/1979 Complete Annual HRA 09/13/1979 GRACIA-7 Anxiety Screen 09/13/1979 DTaP,Tdap,and Td Vaccines (1 - Tdap) 1980 Cervical Cancer Screening (Pap/HPV) 1982 Mammogram 2001 Pneumococcal Vaccine: 50+ Ye ars (1 of 1 - PCV) 09/13/2011 Zoster Vaccines (1 of 2) 09/13/2011 COVID-19 Vaccine ( - 2023-2 5 season) 2025 Influenza Vaccine (#1) 2025 RSV Vaccine (SCDM) (1 - 1-do se 75+ series) 2036 Hepatitis B Vaccines Aged Out No long er eligible based on patient's age to complete this topic Care Teams Collections Manager Relationship Specialty Start Date End Date Donna Villasenor, [facility] Terminal Worker Registered Nurse 02/19/25
--- OUTSIDE RECORDS SUMMARY | 2025-03-17 13:39 | XMS_ITS | Patient Health Record ---
Author Organization [facility] Address [address] [place] [address] Care Team Providers Care Real Estate Broker Associate Name Role Phone Ashley Richards Unavailable [phone] Allergies Allergen (clinical drug ingredient) Drug/Non Drug [...] Risk Notes Problem Excessive and frequent menstruation (394978103) Excessive and frequent menstruation with regular cycle (N92.0) Active confirmed Problem Menopause (019929426) Menopausal and female climacteric states (N95.1) Active confirmed Problem Surveillance of intrauterine device contraception (539561197) Encounter for routine checking of intrauterine contraceptive device (Z30.431) Active confirmed Problem Diverticulitis of colon (892836571) Diverticulitis of intestine, part unspecified, without perforation or abscess without bleeding (K57.92) Active confirmed Problem Irregular Menstruation (54998443) Other specified irregular menstruation (N92.5) Active confirmed Problem Fatigue (05035817) Other fatigue (R53.83) Active confirmed Problem Menopause (480625329) Menopausal and female climacteric states (N95.1) Active confirmed Problem Abnormal vaginal bleeding (948422512) Other disorder of menstruation and other abnormal bleeding from female genital tract (626.8) Active confirmed Major Vital Signs Temperature 98.2 degrees Fahrenheit 05/27/2024 Blood pressure diastolic 84 mm Hg 05/27/2024 Height 65.75 in 05/27/2024 Blood pressure systolic 128 mm Hg 05/27/2024 Weight 217 lbs 05/27/2024 BMI 35.29 kg/m2 05/27/2024 Encounters Encounter Location Date Provider Diagnosis [facility] [place] [address] [address] [facility] [address] [place] [address] 05/27/2024 Ashley Richards Encounter for gynecological examination (general) (routine) without abnormal findings Z01.419 ; Encounter for screening mammogram for malignant neoplasm of breast Z12.31 and Encounter for removal of intrauterine contraceptive device Z30.432 [facility] [place] [address] [address] [facility] [address] [place] [address] 05/30/2024 Ashley Richards Total [facility] [address] [place] [address] 07/24/2024 Ashley Richards Total [facility] [address] [place] [address] 07/29/2024 Ashley Richards Total [facility] [address] [place] [address] 01/05/2025 Ashley Richards Total [facility] [address] [place] [address] 06/11/2024 Ashley Richards Assessments Encounter Date Diagnosis [...] Provider Name:Ashley coyle, 06/02/2025 08:40:00 AM, [address], [address], [place], [address], Insurance Providers Payer Name Payer Address Payer Phone Subscriber Number Group Number Insured Name Patient Relationship to Insured Coverage Start Date Coverage End Date CIG[employer] [address] [place] [address] [phone] [id number] VANESSATabatha BRITTON Garcia Self - patient is [...]
--- OUTSIDE RECORDS SUMMARY | 2025-03-17 13:39 | XMS_ITS | Patient Health Record ---
Author Organization [facility] Address [address] [place] [address] Care Team Providers Care Metal Cnc Operator Name Role Phone Quynh Weiner Unavailable [phone] Allergies Allergen (clinical drug ingredient) Drug/Non Drug [...] Notes Problem Hallux valgus of right foot (7554400642) Hallux valgus of right foot (M20.11) Active confirmed Problem Mononeuropathy of lower limb (928252555) Neuritis of right foot (G57.91) Active confirmed Vital Signs Heart Rate 82 /min 07/18/2024 Blood pressure diastolic 96 mm Hg 07/18/2024 Height 5ft 5 in in 07/18/2024 Blood pressure systolic 152 mm Hg 07/18/2024 Weight 215 lbs 07/18/2024 BMI 35.77 kg/m2 07/18/2024 Encounters Encounter [facility] Date [facility] [address] [facility]/18/[facility] Quynh Black Pain in right foot M79.671 ; Neuritis of right foot G57.91 ; Hallux valgus of right foot M20.11 and Bunion, right M21.[address] [address] 07/18/2024 Quynh Black [address] [address] 07/18/2024 Quynh Black Assessments Encounter Date Diagnosis [...] X ray : Foot, right 3V 07/31/2013 [id number] TENDON SHEATH/LIGAMENT 1 [id number],[id number] TENDON SHEATH/LIGAMENT 0 06/30/2020 [id number]-RIZ TENDON SHEATH/LIGAMENT 0 11/14/2022 Insurance Providers Payer Name Payer Address Payer Phone Subscriber Number Group Number Insured Name Patient Relationship to Insured Coverage Start Date Coverage End Date Cigna [address] [place] [phone] [id number] Olamide Jeffrey Self - patient is the insured Medical (General) History Medical History History ICD Code asthma Broken bones High blood pressure Sciatica Chicken pox Joint implants/screws [place] palsy Surgical History Surgery Date(Month/Year) elbow surgery 2006 oral surgery 05/2024 Hospitalization History Reason Date(Month/Year) [facility] for a 3 day stay for torn carotid 20 11
== END 2025-03-17 11:43 | disposition home or self-care (01) ==
LOC: HO.HMCFM 10:57
PROVIDERS: PCP Internal Medicine; Visit Provider Internal Medicine
DX: Z00.00 Encounter for general adult medical examination without abnormal findings (principal); J45.40 Moderate persistent asthma, uncomplicated; I10 Essential (primary) hypertension

== ENCOUNTER → 2025-03-17 10:55 | Outpatient (BNVA) | payer OTHER, SELFPAY | PROVIDERS: PCP Internal Medicine; Visit Provider Internal Medicine | DX: Z00.00 Encounter for general adult medical examination without abnormal findings (principal); J45.40 Moderate persistent asthma, uncomplicated; I10 Essential (primary) hypertension; Z79.899 Other long term (current) drug therapy; Z13.31 Encounter for screening for depression; Z13.39 Encounter for screening examination for other mental health and behavioral disorders | CPT/HCPCS: 96127; 96160 ==

== ENCOUNTER → 2025-05-18 14:30 | Outpatient (REF) | payer OTHER, SELFPAY ==
--- OUTSIDE RECORDS SUMMARY | 2025-05-18 17:55 | XMS_ITS | Patient Health Record ---
Author Organization [facility] Address [address] [place] [address] Care Team Providers Care Nitriles Lab Technician Name Role Phone Quynh Weiner Unavailable [phone] Allergies Allergen (clinical drug ingredient) Drug/Non Drug [...] Notes Problem Hallux valgus of right foot (8618475911) Hallux valgus of right foot (M20.11) Active confirmed Problem Mononeuropathy of lower limb (426862027) Neuritis of right foot (G57.91) Active confirmed Vital Signs Heart Rate 82 /min 07/18/2024 Blood pressure diastolic 96 mm Hg 07/18/2024 Height 5ft 5 in in 07/18/2024 Blood pressure systolic 152 mm Hg 07/18/2024 Weight 215 lbs 07/18/2024 BMI 35.77 kg/m2 07/18/2024 Encounters Encounter Location Date Provider Diagnosis [facility] [address] 07/18/2024 Quynh Black Pain in right foot M79.671 ; Neuritis of right foot G57.91 ; Hallux valgus of right foot M20.11 and Bunion, right M21.[address] [address] 07/18/2024 Quynh Black [address] [address] 07/18/2024 Quynh Black Assessments Encounter Date Diagnosis [...] X ray : Foot, right 3V 07/31/2013 [id number]-JIY TENDON SHEATH/LIGAMENT 1 [id number],[id number]-RUX TENDON SHEATH/LIGAMENT 0 06/30/2020 [id number]-VIR TENDON SHEATH/LIGAMENT 0 11/14/2022 Insurance Providers Payer Name Payer Address Payer Phone Subscriber Number Group Number Insured Name Patient Relationship to Insured Coverage Start Date Coverage End Date Cigna [address] [place] [phone] [id number] Olamide Jeffrey Self - patient is the insured Medical (General) History Medical History History ICD Code asthma Broken bones High blood pressure Sciatica Chicken pox Joint implants/screws [place] palsy Surgical History Surgery Date(Month/Year) elbow surgery 2006 oral surgery 05/2024 Hospitalization History Reason Date(Month/Year) [facility] for a 3 day stay for torn carotid 20 11
--- OUTSIDE RECORDS SUMMARY | 2025-05-18 17:55 | XMS_ITS | Patient Health Record ---
Author Organization [facility] [employer] [facility] Address [address] [place] [address] Care Team Providers Care Manager Fire Name Role Phone Ashley Richards Unavailable [phone] Allergies Allergen (clinical drug ingredient) Drug/Non Drug [...] Risk Notes Problem Excessive and frequent menstruation (619960538) Excessive and frequent menstruation with regular cycle (N92.0) Active confirmed Problem Menopause (990506452) Menopausal and female climacteric states (N95.1) Active confirmed Problem Surveillance of intrauterine device contraception (743132020) Encounter for routine checking of intrauterine contraceptive device (Z30.431) Active confirmed Problem Diverticulitis of colon (709694176) Diverticulitis of intestine, part unspecified, without perforation or abscess without bleeding (K57.92) Active confirmed Problem Irregular Menstruation (56635772) Other specified irregular menstruation (N92.5) Active confirmed Problem Fatigue (41882849) Other fatigue (R53.83) Active confirmed Problem Menopause (700293488) Menopausal and female climacteric states (N95.1) Active confirmed Problem Abnormal vaginal bleeding (126818025) Other disorder of menstruation and other abnormal bleeding from female genital tract (626.8) Active confirmed Major Vital Signs Temperature 98.2 degrees Fahrenheit 05/27/2024 Blood pressure diastolic 84 mm Hg 05/27/2024 Height 65.75 in 05/27/2024 Blood pressure systolic 128 mm Hg 05/27/2024 Weight 217 lbs 05/27/2024 BMI 35.29 kg/m2 05/27/2024 Encounters Encounter Location Date Provider Diagnosis [facility] [place] [address] [address] [facility] [address] [place] [address] 05/27/2024 Ashley Richards Encounter for gynecological examination (general) (routine) without abnormal findings Z01.419 ; Encounter for screening mammogram for malignant neoplasm of breast Z12.31 and Encounter for removal of intrauterine contraceptive device Z30.432 [facility] [place] [address] [address] [facility] [address] [place] [address] 05/30/2024 Ashley Richards Total [facility] [address] [place] [address] 07/24/2024 Ashley Richards Total [facility] [address] [place] [address] 07/29/2024 Ashley Richards Total [facility] [address] [place] [address] 01/05/2025 Ashley Richards Total [facility] [address] [place] [address] 06/11/2024 Ashley Richards Assessments Encounter Date Diagnosis [...] Provider Name:Ashley coyle, 06/02/2025 08:40:00 AM, [address], [address], [place], [address], Insurance Providers Payer Name Payer Address Payer Phone Subscriber Number Group Number Insured Name Patient Relationship to Insured Coverage Start Date Coverage End Date CIGNA [address] [place] [address] [id number] VANESSATabatha BRITTON Garcia Self - patient is [...]
--- OUTSIDE RECORDS SUMMARY | 2025-05-18 17:55 | XMS_ITS | Clinical Summary ---
Author Organization [facility] Address [address] [place] [address] Care Team Providers Care Pulp Maker Name Role Phone Donna Villasenor RN Unavailable Unavailable Eileen Lopez MD Primary Care Provider [phone] Medications fluticasone-umec lidin-vilanter (Trelegy Ellipta) 200-62.5-25 mcg blister with device Inhale 62.5 mcg 1 (one) time each day Active Encounters Date Type Department Care Team Description 04/30/2025 1:00 PM EST Health Coaching Visit [address] [address] Donna Villasenor RN 03/18/2025 9:30 AM EDT Health Coaching Visit [address] [address] Donna Villasenor RN from Last 3 Months Social History Tobacco Use Types Packs/Day Years Used Date Smoking Tobacco: Never Assessed Comments Unknown Sex and Gender Information Value Date Recorded Sex Assigned at Female 03/18/2025 7:01 AM [facility] Legal Sex Female 1:13 PM [facility] Gender Identity Not on file Sexual Orientation Not on file Last Filed Vital Signs Vital Sign Reading Time Taken Comments Blood Pressure - - Pulse - - Temperature - - Respiratory Rate - - Oxygen Saturation - - Inhaled Oxygen Concentration - - Weight 97.3 kg (214 lb 6.4 oz) 04/30/2025 2:01 P M EST Height 165.1 cm (5' 5 ) 04/30/2025 2:01 PM EST Body Mass Index 35.68 04/30/2025 2:01 PM EST Plan of Treatment Upcoming Encounters Date Type Department Care Team (Late st Contact Info) Description 06/23/2025 11:00 AM EST Health Coaching Visit [facility] [address] [address] Donna Villasenor RN Health Maintenance Due Date Last Done Comments CT Colonography 1961 Cologuard 1961 Colonoscopy 1961 Colorectal Cancer Screening 1961 FOBT/FIT 1961 Hepatitis C Screening 1961 Sigmoidoscopy 1961 MMR Vaccines (1 of 1 - Stand gaston series) 1962 PHQ-9 Depression Screen 1973 GRACIA-7 Anxiety Screen 09/13/1979 DTaP,Tdap,and Td Vaccines (1 - Tdap) 1980 Cervical Cancer Screening (Pap/HPV) 1982 Mammogram 2001 Pneumococcal Vaccine: 50+ Ye ars (1 of 1 - PCV) 09/13/2011 Zoster Vaccines (1 of 2) 09/13/2011 COVID-19 Vaccine ( - 2023-2 5 season) 2025 Influenza Vaccine (#1) 2025 Annual Preventive Exam 05/27/2025 05/27/2024 RSV Vaccine (SCDM) (1 - 1-do se 75+ series) 2036 Hepatitis B Vaccines Aged Out No long er eligible based on patient's age to complete this topic Goals Goal Patient Goal Type Associated Problems Recent Progress Patient-Stated? Author Provide and review Metabolic Syndrome specific workbook (delete if not applicable) Care Plan Wellness Specific Goals No Donna Villasenor RN Set initial healthcare provider visit Care Plan Wellness Specific Goals No Donna Villasenor RN Take actions to address health maintenance gaps Care Plan Wellness Specific Goals No Donna Villasenor RN Increase physical activity Care Plan Physical Activity No change(2024 2:05 PM EST) No Donna Villasenor RN Note: Motivation (Select one of these): Motivation medium Confidence medium - Will look into joining the [employer] so she can go to classes and swim. Exercise X minutes on X days per week Care Plan Physical Activity No Donna Villasenor RN Improve balance, strength or endurance Care Plan Physical Activity No Risa Villasenore, RN Start of Coaching Healthy Eating Survey: Generate baseline customer score Care Plan Healthy Eating Donna Villar RN End of Coaching Healthy Eating Survey: Generate customer endpoint score Care Plan Healthy Eating Donna Villar RN Eat less salt Care Plan Healthy Eating Donna Villar RN Eat less fast food Care Plan Healthy Eating Donna Villar RN Cut out extra servings at meals Care Plan Healthy Eating Donna Villar RN Drink less soda, juice, and other sugary beverages Care Plan Healthy Eating Donna Villar RN Eat fewer sweets and sugary snacks Care Plan Healthy Eating Donna Villar RN Decrease/monitor simple carbohydrate intake Care Plan Healthy Eating Donna Villar RN Follow the DASH diet Care Plan Healthy Eating Donna Villar RN Improve meal consistency Care Plan Healthy Eating Donna Villar RN Plan meals in advance Care Plan Healthy Eating Donna Villar RN Learn how to prepare healthy meals at home Care Plan Healthy Eating Donna Villar RN Eat more fruits and vegetables Care Plan Healthy Eating Donna Villar RN Start of Coaching HRQOL: Generate baseline customer score Care Plan Behavioral Health Donna Villar RN End of Coaching HRQOL: Generate endpoint customer score Care Plan Behavioral Health Donna Villar RN Start of Coaching Stress Assessment (Standard): Generate baseline customer score Care Plan Behavioral Health Donna Villar RN End of Coaching Stress Assessment (Standard): Generate endpoint customer score Care Plan Behavioral Health Donna Villar RN Improve your coping skills Care Plan Behavioral Health Donna Villar RN Improve problem solving skills Care Plan Behavioral Health Donna Villar RN Improve organizational/jas e management skills Care Plan Behavioral Health Donna Villar RN Develop/expand support system Care Plan Behavioral Health Donna Villar RN Maintain relationships Care Plan Behavioral Health Donna Villar RN Decrease Alcohol Use Care Plan Behavioral Health Donna Villar RN Decrease Drug Use Care Plan Behavioral Health Donna Villar RN Investigate stress management techniques Care Plan Behavioral Health Donna Villar RN Reduce job or personal stress through self management Care Plan Behavioral Health Donna Villar RN Patient will identify 3 triggers of depression Care Plan Behavioral Health Donna Villar RN Patient will better manage their depression Care Plan Behavioral Health Donna Villar RN Decrease signs and symptoms of depression Care Plan Behavioral Health Donna Villar RN Reduce overall tension and anxiety Care Plan Behavioral Health Donna Villar RN Client will be able to identify emotional and physiological signs of anxiety Care Plan Behavioral Health Donna Villar RN Learn and implement coping skills to increase tolerance to anxiety Care Plan Behavioral Health Donna Villar RN Consistently take Medications as Prescribed Care Plan Medications Donna Villar RN Healthy Weight management Care Plan Weight Donna Villar RN Improve Sleep Habits Care Plan Sleep Donna Villar RN Quit using tobacco (cigarettes, smokeless, etc) Care Plan Tobacco Donna Villar RN Reduce tobacco use (cigarettes, smokeless, etc) Care Plan Tobacco Donna Villar RN Work with tobacco cessation program Care Plan Tobacco Donna Villar RN Provide and Review condition specific workbook Care Plan Tobacco Donna Villar RN Additional Health Concerns Active Problems Noted Date Diagnosed Date Wellness Specific Goals 03/18/2025 Physical Activity 03/18/2025 Healthy Eating 03/18/2025 Behavioral Health 03/18/2025 Medications 03/18/2025 Weight 03/18/2025 Sleep 03/18/2025 Tobacco 03/18/2025 Insurance C[employer] Care Teams Pulp Maker Relationship Specialty Start Date End Date Eileen Lopez MD [address] [place] [address] PCP - General Internal Medicine 03/18/25 Donna Villasenor, ASAEL Health Sem Manager Registered Nurse 02/19/25
--- OUTSIDE RECORDS SUMMARY | 2025-05-18 17:55 | XMS_ITS ---
Care Plan Created on: May 18, 2025 Olamide Hawkins : 1960 Sex: Female Author Organization [facility] Address [address] [place] [address] Care Team Providers Care Structural Steel Erector Name Role Phone Donna Villasenor RN Unavailable Unavailable Eileen Lopez MD Primary Care Provider [phone] Additional Health Concerns Active Problems Noted Date Diagnosed Date Wellness Specific Goals 03/18/2025 Physical Activity 03/18/2025 Healthy Eating 03/18/2025 Behavioral Health 03/18/2025 Medications 03/18/2025 Weight 03/18/2025 Sleep 03/18/2025 Tobacco 03/18/2025 Goals Goal Patient Goal Type Associated Problems [...] or endurance Care Plan Physical Activity No Donna Villasenor RN Start of Coaching Healthy Eating Survey: Generate baseline customer score Care Plan Healthy Eating No Donna Villasenor RN End of Coaching Healthy Eating Survey: Generate customer endpoint score Care Plan Healthy Eating No Donna Villasenor RN Eat less salt Care Plan Healthy Eating No Donna Villasenor RN Eat less fast food Care Plan Healthy Eating No Donna Villasenor RN Cut out extra servings at meals Care Plan Healthy Eating No [place], Donna, RN Drink less soda, juice, and other [...] workbook Care Plan Tobacco Donna Villar RN Interventions Care Plan Interventions Intervention Entry Date Outcome (Patient) I will use reminder tools such as a pill box or medication log to help me keep track of what medications to take each day. 03/18/2025 (Patient) I will ensure that I have sufficient amounts of all of my medications. 03/18/2025 (Patient) I will be able to state that I understand how to I am supposed to take my medications. 03/18/2025 (Patient) I will be able to say what my medications are at the next review. 03/18/2025 Medication education 03/18/2025 Related Goals and Interventions Goal Associated Intervent ions Consistently take Medication s as Prescribed (Patient) I will use reminder tools such as a pill box or medication log to help me keep track of what medications to take each day.; (Patient) I will ensure that I have sufficient amounts of all of my medications.; (Patient) I will be able to state that I understand how to I am supposed to take my medications.; (Patient) I will be able to say what my medications are at the next review.; Medication education
--- OUTSIDE RECORDS SUMMARY | 2025-05-18 17:55 | XMS_ITS | Data Portability ---
Author Organization [place] [facility], Allergy Address [address] [facility] [address] [place] [address] Care Team Providers Care Chili Pepper Grinder Name Role Phone MilenaMORTEZA LARES Primary Care Provider Assessment Encounter Date Assessment Date Assessment LastModified [...] empty sella on MRI brain 04/17/232024 025 [facility], [address] [place] [address] [place], [address], 11:05:13 Procedures None recorded. Surgeries None recorded. Imaging None recorded. Medication Orders None recorded. Patient TargetsNo targets recorded. Patient InstructionsNo instructions recorded. 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 4 02:31:38 Problem Notes None recorded. Medical Equipment None Reported. Allergies Allergen ID Allergen Name Allergen Category Reaction Reaction Severity Criticality Documentation Date Start Date Code Code System Note Provider Name and Address Organization Details Recorded Time 93234 Biaxin medicatio n itching Not available Not available 10/09/202369296 9 RxNorm React ion: Itch; Not Available [facility] 4 00:58:39 Medications Name Sig Start Date Stop Date Status Note LastModified by Organization Details LastModified Time doxycyclin e hyclate 100 mg capsule TAKE 1 CAPSULE BY MOUTH DAILY UNTIL ALL TAKEN active Not Available Not Available No t Available Multiple Vitamins tablet active Medication ID: [id number] Osbaldo nd Name: Multiple Vitamins S end Method: E-Prescrib ed Subs Allowed: subs OK Medicat ionGeneric Name: Multiple Vitamins Not Available Not Available Not Available hydrochlor othiazide 25 mg tablet active Medication ID: [id number] Osbaldo nd Name: hydrochlor othiazide Send Method: E-Prescrib ed Subs Allowed: subs OK Medicat ionGeneric Name: hydrochlor othiazide Not Available Not Available Not Available ibuprofen 600 mg tablet TAKE 1 TABLET BY MOUTH EVERY 6 HOURS NEEDED FOR PAIN active Not Available Not Available No t Available albuterol active Medication ID: [id number] Osbaldo nd Name: Albuterol Send Method: E-Prescrib ed Subs Allowed: subs OK Medicat ionGeneric Name: Albuterol Not Available Not Available Not Available Breo Ellipta active Medication ID: [id number] Osbaldo nd Name: Breo Ellipta Se nd Method: E-Prescrib ed Subs Allowed: subs OK Medicat ionGeneric Name: Colleen Meade Not Available Not Available Not Available Vitals Date Recorded Body weight Body mass index (BMI) Body height Provider Name and Address Organization Details Last Updated DateTime 07/14/2024 30450.36 g 35.8 kg/m2 165.1 cm Genoveva Negrete [place] [facility] 07/14/2024 10:12:23 Social History None recorded. Functional Status None recorded. Mental Status None recorded. Family History Nothing Reported. Medical History No medical history recorded. Gynecological HistoryNo gynecological history recorded. 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 51917715 D44.3 Loss of se nse of smell 61728789 R43.0 Health Concerns Section Related Observation LastModified by Organization Detai ls LastModified Time None Recorded Concern Status LastModified by Organization Details LastModified Time None Recorded Advance Directives Directive None Recorded Payers Insurance Date Sequence Insurance Name Policy Number Policy Marie Covered Member ID Marie Member ID Guarantor Name 10/01/2024 1 [employer] [id number] Olamide Hawkins [id number] Olamide Hawkins Notes Date Note Type Note Provider Name and Address Organization Details Recorded Time 07/14/2024 text/html ROS as noted in the HPI 63 year old female patient of Dr. Alvarado seen back in [...] and smell from Covid. JACE FRAGOSO MD [address] [place] [address], [place], [address], [facility] - [facility] 07/14/2024 12:33:30 OBGyn Episode No OBEpisode recorded.
== END ==
LOC: HO.SL 14:30
PROVIDERS: PCP Internal Medicine; Visit Provider Nurse Practitioner Family
DX: R06.83 Snoring (principal); R40.0 Somnolence
CPT/HCPCS: 95806

== ENCOUNTER → 2025-05-19 14:30 | Outpatient (BNV) | payer OTHER, SELFPAY | PROVIDERS: PCP Internal Medicine; Visit Provider Psychiatry & Neurology Neurology | DX: R40.0 Somnolence (principal); R06.83 Snoring | CPT/HCPCS: 95806 ==